=== PATIENT | female | born 1940 | race Caucasian/White ===

== ENCOUNTER 2020-04-20 10:25 | Outpatient (CLI) | payer MEDICARE, SELFPAY ==
--- NOTE | ~2020-04-20 | XR_ITS ---
XR chest 2V DATE: 04/20/2020 10:55 INDICATION: Shortness of breath. Epigastric pain. TECHNIQUE: PA and lateral views COMPARISON: 01/29/2019 PA chest and left RIBS FINDINGS: Bilateral hyperinflation, suggesting COPD. There is discoid atelectasis or more likely scar ring in the left lower lung in the retrocardiac area. No pulmonary infiltrate or consolidation, pleur al effusion or pulmonary vascular congestion or pneumothorax is detected. Heart size appears within normal limits. There is aortic calcification and mild unfolding. Diffuse osteopenia. Mild degenerative spurring of the thoracic spine. IMPRESSION: Bilateral hyperinflation, suggesting COPD Discoid scarring, left lower lobe Osteopenia Reviewed, dictated and finalized at location A.
== END 2020-04-20 10:26 | disposition home or self-care (01) ==
LOC: ANHIMG 10:34
PROVIDERS: PCP Family Medicine; Visit Provider Family Medicine
DX: R06.02 Shortness of breath (principal); R07.89 Other chest pain; G20 Parkinson's disease; R91.8 Other nonspecific abnormal finding of lung field; M85.88 Other specified disorders of bone density and structure, other site
CPT/HCPCS: 71046

== ENCOUNTER 2020-05-09 12:01 | Outpatient (CLI) | payer MEDICARE, SELFPAY ==
--- NOTE | ~2020-05-09 | MMUS_ITS ---
EXAMINATION: MM screen RT diag LT w amberly, US breast LT limited HISTORY: Mastodynia and lump, left breast TECHNIQUE: MLO and cc 3-D tomosynthesis images of both breasts and ML 3-D Tomosynthesis images of lef t breast were performed and synthetic 2-D images were generated. CAD analysis was submitted and inter preted. High resolution targeted left breast ultrasound was performed. COMPARISON: 11/28/2016 right screening/left diagnostic mammogram and limited left breast ultrasound BREAST PARENCHYMAL COMPOSITION: The breasts are heterogeneously dense, which may obscure small masses . FINDINGS: MAMMOGRAPHIC FINDINGS: Multiple bilateral benign calcifications. No suspicious mass or architectural distortion, malignant c alcification, skin thickening or retraction or significant new or developing density is detected. ULTRASOUND: There is no evidence of focal abnormal solid or cystic lesion in the area of complaint of breast pain at 12:00 3 cm above the nipple. IMPRESSION: 1. No mammographic evidence of malignancy 2. Routine mammographic screening is recommended. BI-RADS Category 2: Benign finding(s). Reviewed, dictated and finalized at location A. IMPRESSION: 1. No mammographic evidence of malignancy 2. Routine mammographic screening is recommended. BI-RADS Category 2: Benign finding(s).
== END 2020-05-09 12:02 | disposition home or self-care (01) ==
PROVIDERS: PCP Family Medicine; Visit Provider Family Medicine
DX: N63.20 Unspecified lump in the left breast, unspecified quadrant (principal); N64.4 Mastodynia; Z12.31 Encounter for screening mammogram for malignant neoplasm of breast
CPT/HCPCS: 76642; 77063; 77065; 77067

== ENCOUNTER 2020-05-25 09:08 | Outpatient (CLI) | payer MEDICARE, SELFPAY ==
--- NOTE | 2020-05-25 09:20 | ECHO_ITS ---
Patient Info Name: Rosalie Bettencourt Age: 79 years : 1940 Gender: Female Ht: 67 in Wt: 128 lbs BSA: 1.65 m2 HR: 66 bpm BP: 167 / 75 mmHg Technical Quality: Good Exam Date: 05/25/2020 9:25 AM Exam Location: [facility] Patient Status: Outpatient Admit Date: 05/25/2020 Staff Ordering Physician: Zamzam Myrick MD Interlocking Pavement Installer: Rosalie Alvarez RDCS Attending Provider: Zamzam Myrick MD Referring Physician: Ramez DUNN; Exam Type: CA echo doppler color flow Study Info Indications - sob Complete two-dimensional, color flow and Doppler transthoracic echocardiogram is performed. Summary 1. Left ventricular chamber dimension is normal. 2. Left ventricular systolic function is normal, estimated at 65-70%. 3. The left ventricular diastolic function is grade II diastolic dysfunction. 4. E/e' 12 is mildly elevated. 5. Left atrial chamber dimension is mildly enlarged. 6. There is mild aortic valve sclerosis. 7. There is mild mitral valve regurgitation. 8. There is trace tricuspid valve regurgitation. 9. No pulmonary hypertension, estimated pulmonary arterial systolic pressure is 27 mmHg. 10. There is trace pulmonic regurgitation. Left Ventricle E/e' 12 is mildly elevated. Left ventricular chamber dimension is normal. Left ventricular systolic function is normal, estimated at 65-70%. The left ventricular diastolic function is grade II diastolic dysfunction. Right Ventricle Right ventricular chamber dimension is normal. Right ventricular systolic function is normal. Left Atria Left atrial chamber dimension is mildly enlarged. Right Atria Right atrial chamber dimension is normal. Aortic Valve The aortic valve is trileaflet. There is mild aortic valve sclerosis. There is no aortic valve stenosis. There is no aortic valve regurgitation. Pulmonic Valve There is trace pulmonic regurgitation. Mitral Valve There is no mitral valve stenosis. There is mild mitral valve regurgitation. Tricuspid Valve There is trace tricuspid valve regurgitation. No pulmonary hypertension, estimated pulmonary arterial systolic pressure is 27 mmHg. Pericardium/Pleural There is no pericardial effusion. Inferior Vena Cava Normal inferior vena cava with >50% collapse upon inspiration consistent with normal right atrial pressure, 5 mmHg. Aorta The aortic root size at the sinus of Valsalva is normal. Left Ventricular Outflow Tract Name Value Normal LVOT 2D LVOT Diameter 2.0 cm LVOT Doppler LVOT Peak Gradient 4 mmHg LVOT Mean Gradient 2 mmHg LVOT VTI 23 cm LVOT VTI/AV VTI Ratio 0.7 LVOT Stroke Volume 69 ml LVOT CO 13.3 l/min LVOT CI 8.0 l/min/m2 Pulmonic Valve Name Value Normal
--- NOTE | 2020-05-31 13:52 | WPDPFTINT ---
PFT Interpretation PFT Interpretation: DOS: 05/25/2020 REQUESTING: Dr. Zamzam Myrick REASON FOR TESTING: Shortness of breath PULMONARY FUNCTION TESTS Results are reproducible and reliable. Spirometry: FEV1 is 57%, moderately decreased. FVC is 58%, moderately decreased. FEV1% is decreased. NFI01-53% is 31% predicted, severely decreased. There is no significant response to bronchodilator. Lung volumes: TLC 84%, normal. RV 123%, consistent with mild air trapping. Airways resistance is 293%, increased. Diffusion: DLCO 79%, normal. Flow volume loop: Mild scooping of the expiratory limb. IMPRESSION: Moderate obstructive ventilatory impairment with air trapping, increased airway resistance, and normal diffusion. Lack of response to bronchodilator should not preclude use if clinically indicated. Vanda Gordon MD
== END 2020-05-25 09:09 | disposition home or self-care (01) ==
LOC: ANHCARD 09:11
PROVIDERS: PCP Family Medicine; Visit Provider Family Medicine
DX: R06.02 Shortness of breath (principal); R94.2 Abnormal results of pulmonary function studies; I51.7 Cardiomegaly
CPT/HCPCS: 93306; 94060; 94726; 94729

== ENCOUNTER 2021-10-29 21:23 | Emergency (ER) | payer MEDICARE, SELFPAY ==
--- NOTE | ~2021-10-29 | CT_ITS ---
EXAMINATION: CT BRAIN W/O DATE: 10/29/2021 22:20 INDICATION: Numbness and tingling. TECHNIQUE: Computed tomography (CT) of the head was performed without intravenous contrast. The dose- length product was 605.33 mGy-cm. Automated exposure control and iterative reconstruction technique w ere employed. COMPARISON: No prior studies for comparison. FINDINGS: Normal brain parenchymal volume for age. Normal brody-white differentiation. No acute intrac ranial hemorrhage, infarction, mass or mass effect. No ventriculomegaly or midline shift. Midline sagittal images demonstrate a normal corpus callosum, c raniovertebral junction and sella turcica. Basilar cisterns are patent. Paranasal sinuses and mastoids are pneumatized. No depressed skull fractures. IMPRESSION: 1. No acute intracranial abnormality. Reviewed, dictated and finalized at location A. K GREASER
[2021-10-29 21:30] VITALS: BP 198/82; PULSE 70; RESP 16; TEMP 36.8; O2SAT 95
[2021-10-29 21:46] VITALS: PULSE 77; O2SAT 96
[2021-10-29 21:47] VITALS: BP 193/93; PULSE 74; PULSE 75; RESP 12; RESP 18; TEMP 36.6; O2SAT 100; O2SAT 96
--- NOTE | 2021-10-29 21:52 | ED.NEUROSD ---
HPI - Neuro Symptoms/Deficit General Chief Complaint: Suspected CVA Stated Complaint: right sided numbness, tingling 1 hour ago Time Seen by Provider: 10/29/21 21:42 Source: patient History of Present Illness HPI Narrative: Patient presents with paresthesias of the right hand and right lip. Patient reports she was resting at home developed sudden onset of tingling in her hands that slowly radiated up to her elbow then resolved after which she developed paresthesias on her right tongue and right lip symptoms have resolved as well. Symptoms lasted approximately 10 minutes and resolved without intervention. Prior to today she is felt well denies any recent fevers, cough, congestion, nausea, vomiting, change in appetite. She denies any associated headache or muscle weakness. She reports remote history of hand numbness undiagnosed. Related Data Home Medications Medication Instructions Recorded Confirmed carbidopa 25 mg-levodopa 100 mg 1.5 tablet PO TID tablet 11/02/20 10/02/21 tablet Allergies Allergy/AdvReac Type Severity Reaction Status Date / Time No Known Allergies Allergy Verified 10/29/21 21:35 Review of Systems Review of Systems: CONSTITUTIONAL: Denies fever, chills, or sweats. EYES: Denies visual changes, redness, or discharge. ENT: Denies rhinorrhea, congestion, sore throat, or otalgia. CARDIOVASCULAR: Denies chest pain, palpitations, or edema. RESPIRATORY: Denies cough or dyspnea. GASTROINTESTINAL: Denies abdominal pain, nausea, vomiting, or diarrhea. GENITOURINARY: Denies dysuria or hematuria. SKIN: Denies rash or itching. MUSCULOSKELETAL: Denies back pain, joint pain, or myalgia. NEUROLOGIC: Denies headache, dizziness, or weakness. PSYCHIATRIC: Denies anxiety or depression. All systems reviewed & are unremarkable except as noted in HPI and below PMFSH Past Medical History Medical History Supraventricular tachycardia Family History Family History Grandparent Diabetes mellitus Family history of cardiovascular disease Sibling Family history of malignant neoplasm Mother Family history of Parkinson's disease Father Family history of pancreatic cancer Other Cerebrovascular accident Family history of malignant neoplasm of breast Social History Social History Alcohol intake: current Exam Narrative: GENERAL: Well-appearing, well-nourished, and in no acute distress. HEAD: Normocephalic, atraumatic. EYES: PERRLA and EOMI. ENT: Nares clear, no rhinorrhea or epistaxis. Mucous membranes moist. NECK: Supple. No masses. No JVD CHEST: Clear to auscultation. No respiratory distress. No wheezes rales or rhonchi HEART: Regular rate and rhythm. No murmur heard. Normal peripheral pulses. ABDOMEN: Soft, nontender, nondistended, normal active bowel sounds. EXTREMITIES: Normal range of motion. No edema. Negative Phalen's and Tinel's SKIN: Warm, dry, no rash. NEURO: Cranial nerves II through XII are intact patient has 5 out of 5 strength in all extremities sensation intact to light touch in all extremities alert and oriented x3. PSYCH: Normal mood and affect. Course Reevaluation(s) Reevaluation #1: Patient continues to be asymptomatic. Results and plan reviewed with patient. Patient is comfortable with outpatient plan. Date: 10/29/21 Time: 22:37 Vital Signs Vital signs: Vital Signs Temperature 36.8 C 10/29/21 21:30 Pulse Rate 70 10/29/21 21:30 Respiratory Rate 16 10/29/21 21:30 Blood Pressure 198/82 H 10/29/21 21:30 Pulse Oximetry 95 10/29/21 21:30 Temperature 36.6 C 10/29/21 21:47 Pulse Rate 84 10/29/21 22:04 Respiratory Rate 12 10/29/21 21:47 Blood Pressure 193/93 H 10/29/21 21:47 Pulse Oximetry 96 10/29/21 21:47 MDM - Neuro Symptoms/Deficit MDM Narrative Medical
[2021-10-29 22:04] VITALS: PULSE 84
[2021-10-29 22:12] LABS: Basophils Percent Auto 0.7 % (0.2-1.2); Eosinophils Absolute Auto 0.1 K/mm3 (0-0.3); Eosinophils Percent Auto 1.6 % (0-4.4); Immature Granulocyte Absolute 0.01 K/mm3 (0.00-0.031); Immature Granulocyte Percent A 0.2 % (0-0.5); Lymphocytes Absolute Auto 2.54 K/mm3 (0.9-3.2); Lymphocytes Percent Auto 41.6 % (18.3-44.2); Mean Corpuscular HGB Conc 32.6 g/dl (32-36); Mean Corpuscular Hemoglobin 28.5 pg (26-34); Mean Corpuscular Volume 87.6 fl (80-100); Mean Platelet Volume 9.9 fl (7.4-10.4); Monocytes Absolute Auto 0.6 K/mm3 (0.1-0.6); Neutrophils Absolute Auto 2.8 K/mm3 (1.3-6.7); Neutrophils Percent Auto 45.9 % (45.5-73.1); Platelet Count Result 267 k/mm3 (150-375); Red Blood Count 4.91 M/mm3 (4.2-5.4); Red Cell Distribution Width 13.6 % (11.5-14.5); White Blood Count 6.1 K/mm3 (4.5-10.0)
[2021-10-29] MEDS: SODIUM CHLORIDE 0.9% IV 1,000 ML 999 ML IV CONT (22:12)
[2021-10-29 22:18] LABS: Add Urine Microscopic? YES; Appearance Urine Cloudy (Clear); Bacteria Urine Trace /hpf; Bilirubin Urine Negative (Negative); Blood Urine Negative (Negative); Color Urine Yellow (Yellow); Glucose Urine UA Negative (Negative); Ketones Urine Trace mg/dL (Negative); Leukocyte Esterase Ur 2+ LEU/UL (Negative); Mucus Urine Rare /lpf; Nitrate Urine Negative (Negative); Protein Urine Negative (Negative); Specific Grav Ur 1.013 (1.001-1.035); Squamous Epithelial Cell Urine Few /hpf (Few); Urobilinogen Urine Negative mg/dL (<2.0); WBC Urine 21-30 /hpf
[2021-10-29 22:24] LABS: Alanine Aminotransferase 7 U/L (4-35); Albumin Level 4.7 g/dL (3.5-5.1); Alkaline Phosphatase 77 U/L (38-126); Anion Gap 8 mmol/L (8-16); Aspartate Amino Transferase 31 U/L (14-36); Bilirubin,Total 0.7 mg/dL (0.2-1.3); Blood Urea Nitrogen 14 mg/dL (7-17); Calcium 9.6 mg/dL (8.4-10.2); Carbon Dioxide 27 mmol/L (22-30); Chloride 99 mmol/L (98-107); Estimated CRCL calculation 53 ml/min; Estimated Glomerular Filt Rate > 60; Glucose 106 mg/dL (65-110); Magnesium 1.8 mg/dL (1.6-2.3); Phosphorus 3.9 mg/dL (2.5-4.5); Potassium 3.7 mmol/L (3.4-5.0); Sodium 134 mmol/L (137-145)
== END 2021-10-29 23:12 | disposition home or self-care (01) ==
PROVIDERS: Emergency Provider Emergency Medicine; PCP Family Medicine
DX: N39.0 Urinary tract infection, site not specified (principal); R20.2 Paresthesia of skin
CPT/HCPCS: 36415; 70450; 80053; 81001; 83735; 84100; 85025; 87077; 87086; 87186; 96360; 99284; J7030

== ENCOUNTER 2021-10-31 10:24 | Outpatient (CLI) | payer MEDICARE, SELFPAY ==
--- NOTE | ~2021-10-31 | MM_ITS ---
EXAMINATION: MM screening melina BI w amberly HISTORY: Screening mammogram TECHNIQUE: Craniocaudal and mediolateral oblique 3-D tomosynthesis images were obtained and synthetic 2-D images were generated. CAD analysis was submitted and interpreted. COMPARISON: No prior mammogram is available for comparison at this institution. BREAST PARENCHYMAL COMPOSITION: The breasts are heterogeneously dense, which may obscure small masses . FINDINGS: Numerous bilateral benign calcifications are noted There is no evidence of suspicious mass , calcification, or architectural distortion to suggest malignancy in either breast. There has been n o suspicious interval change. IMPRESSION: 1. No mammographic evidence of malignancy. 2. Recommend routine screening mammography in one year. BI-RADS Category 2: Benign finding(s). Reviewed, dictated and finalized at location A. AGE SUPERVISOR
== END 2021-10-31 10:25 | disposition home or self-care (01) ==
LOC: ANHIMG 10:25
PROVIDERS: PCP Family Medicine; Visit Provider Family Medicine
DX: Z12.31 Encounter for screening mammogram for malignant neoplasm of breast (principal)
CPT/HCPCS: 77063; 77067

== ENCOUNTER 2022-02-05 18:57 | Inpatient (IN) | payer MEDICARE, SELFPAY ==
--- NOTE | ~2022-02-05 | US_ITS ---
EXAMINATION:US venous doppler LE BI INDICATION:Positive d-dimer TECHNIQUE: Multiple grayscale, color flow and Doppler images of the right and left lower extremity de ep venous systems were obtained and reviewed. COMPARISON:No prior studies for comparison. FINDINGS: The common femoral, superficial femoral and popliteal veins demonstrate normal respiratory variation, augmentation and compressibility. Color flow is also seen within the posterior tibial, pe roneal, greater saphenous and profunda veins. IMPRESSION: 1: No lower extremity deep venous thrombosis. Reviewed, dictated and finalized at location A.
--- NOTE | ~2022-02-05 | MR_ITS ---
EXAMINATION: MR brain/brain stem wo con DATE: 02/06/2022 11:11 CDT INDICATION: Dizziness TECHNIQUE: Magnetic resonance imaging (MRI) of the brain and brainstem was performed without intraven ous contrast. Sequences included sagittal and axial T1-weighted SE, axial diffusion-weighted FS SE, a xial T2*-weighted GRE, axial T2-weighted FLAIR Propeller, and axial T2-weighted Propeller. Apparent d iffusion coefficient (ADC) maps were created. COMPARISON: CT dated 02/05/2022 FINDINGS: The brain volume and ventricular system are within normal limits. The brain parenchymal si gnal intensity pattern and brody/white matter is normal and there is no evidence of hemorrhage, space occupying masses or infarctions. There are scattered mild periventricular and subcortical white matte r changes, most likely related to small vessel ischemic disease (microangiopathy). Orbits are symmetr ic without disconjugate gaze. The flow signal voids of the major arterial structures about the [place] of [place] and within the silva r dural venous sinuses appear grossly unremarkable and patent. The seventh and eighth cranial nerve complexes are normal. The mid sagittal image demonstrates a normal craniovertebral junction and khang us callosum. The paranasal sinuses are grossly unremarkable. IMPRESSION: 1: No acute intracranial abnormality. 2: Age-related findings. Reviewed, dictated and finalized at location A.
--- NOTE | ~2022-02-05 | CT_ITS ---
EXAMINATION: CT brain wo con, CT cervical spine wo con EXAM DATE: 02/05/2022 19:29 INDICATION: Fall. Head injury. Left ear bleeding. TECHNIQUE: Spiral CT of the head was performed without contrast. Axial, coronal and sagittal images were reviewed. Spiral CT of the cervical spine was performed without contrast. Axial images were rev iewed. Coronal and sagittal reformatted images were also reviewed. The dose-length product (DLP) fo r this examination was 605.33 (accession [id number]), 82.25 (accession [id number]) mGy-cm. T he exposure was tailored according to patient size, and iterative reconstruction (ASIR) was used as a dditional dose reduction technique. Comparison is made to prior examination from 10/29/2021. FINDINGS: HEAD CT: There is no acute intraparenchymal hemorrhage. No evidence of intraparenchymal brain mass l esion. No evidence of acute infarction. There is mild periventricular and subcortical hypodensity, n onspecific but probably related to small vessel ischemic disease. There is mild prominence of the s ulci and ventricles related to cerebral atrophy. There is no mass effect or midline shift. There i s no obstructive hydrocephalus suspected. There are no extra-axial collections. There are no acute calvarial fractures. Patient has had bilateral ocular lens surgery. Soft tissue is unremarkable. T he visualized sinuses and mastoid air cells are well aerated. CERVICAL CT: There is no evidence of acute cervical fracture. The odontoid process is intact. Pre-d ens space is normal. Prevertebral soft tissue is normal. There are no soft tissue abnormalities isabella ntified. There is no disc space widening or traumatic vertebral body subluxation suspected. Moderat e cervical spondylosis. A detailed level by level evaluation of spondylosis can be added as addendum if requested. IMPRESSION: 1. No acute intracranial findings or cervical fracture. 2. Age-related intracranial findings. 3. Cervical spondylosis. Reviewed, dictated and finalized at location G. IMPRESSION: 1. No acute intracranial findings or cervical fracture. 2. Age-related intracranial findings. 3. Cervical spondylosis.
--- NOTE | ~2022-02-05 | US_ITS ---
EXAMINATION: US carotid duplex BI DATE: 02/06/2022 11:40 INDICATION: Syncope TECHNIQUE: Grayscale, color Doppler, and pulsed Doppler images of the cervical carotid arteries were obtained. The degree of vessel stenosis is placed in one of the following categories: normal, <50%, 5 0-69%, >=70% but less than near-occlusion, near-occlusion, or total occlusion. Note that percent sten osis relative to normal distal artery lumen diameter is indirectly measured from velocity measurement s as described by Sven, et al. Radiology 2003; 229:340-346. Notes: Normal: Peak systolic velocity <125 centimeters/sec and no plaque <50%. Peak systolic velocity <125 ( EDV <40; ICA/CCA PSV ratio <2.0; used these factors only a tandem lesions or low cardiac output or co ntralateral disease) 50-69 %: PSV 125-230 (EDV 40-100; ratio 2-4) >= 70% but less than near occlusion: PSV greater than 230 (EDV > 100; ratio> 4.0) Near Occlusion: PSV that is variable; markedly narrowed lumen Occlusion: Absent flow on color/spectral Doppler and no lumen on brody scale. COMPARISON: None. FINDINGS: RIGHT: The right common carotid artery (CCA) peak systolic velocity (PSV) is 98 cm/s. The right internal car otid artery (ICA) PSV is 84 cm/s. The right ICA end-diastolic velocity (EDV) is 14 cm/s. The right IC A/CCA PSV ratio is 0.9. The external carotid artery (ECA) PSV is 122 cm/s. There is antegrade flow in the right vertebral artery. LEFT: The left CCA PSV is 106 cm/s. The left ICA PSV is 93 cm/s. The left ICA EDV is 24 cm/s. The left ICA/ CCA PSV ratio is 0.9. The ECA PSV is 111 cm/s. There is antegrade flow in the left vertebral artery. IMPRESSION: 1. Less than 50% stenosis in the right internal carotid artery by sonographic criteria. 2. Less than 50% stenosis in the left internal carotid artery by sonographic criteria. Reviewed, dictated and finalized at location A. IMPRESSION: 1. Less than 50% stenosis in the right internal carotid artery by sonographic brian díaz. 2. Less than 50% stenosis in the left internal carotid artery by sonographic juan carlos ellis.
[2022-02-05 19:00] VITALS: BP 161/71; PULSE 61; RESP 18; TEMP 36.6; O2SAT 98
--- NOTE | 2022-02-05 19:05 | ECG_ITS ---
Measurements Intervals [place] Rate: 60 P: 81 CA: 200 QRS: -14 QRSD: 105 T: 44 QT: 421 QTc: 423 Interpretive Statements SINUS RHYTHM POSSIBLE RIGHT VENTRICULAR CONDUCTION DELAY [RSR (QR) IN V1/V2] MINIMAL VOLTAGE CRITERIA FOR LVH, CONSIDER NORMAL VARIANT [MEETS CRITERIA IN ONE OF: R(aVL), S(V1), R(V5), R(V5/V6)+S(V1)] INFERIOR MYOCARDIAL INFARCTION , PROBABLY OLD [40+ ms Q WAVE AND/OR ST/T ABNORMALITY IN II/aVF] ABNORMAL ECG NO PREVIOUS ECG AVAILABLE FOR COMPARISON Electronically Signed On 02-06-2022 13:52:34 CDT by Micha Franz M.D.
--- NOTE | 2022-02-05 19:33 | ED.DIZZY ---
HPI - Dizziness General Chief Complaint: Syncope Stated Complaint: syncopal with glf hit left side of head Time Seen by Provider: 02/05/22 19:10 Source: patient Mode of arrival: ambulatory Limitations: no limitations History of Present Illness HPI Narrative: Patient is an 82-year-old female brought in by EMS after a syncopal episode while sitting at her desk at work prior to arrival. Patient states that she felt lightheaded prior to the event. Patient denies any headache, dizziness, speech or visual disturbance, focal weakness or numbness, chest pain, shortness of breath, abdominal pain, nausea, vomiting, diarrhea, urinary symptoms, fever or chills. Related Data Home Medications Medication Instructions Recorded Confirmed carbidopa 25 mg-levodopa 100 mg 1.5 tablet PO TID tablet 11/02/20 01/16/22 tablet Allergies Allergy/AdvReac Type Severity Reaction Status Date / Time No Known Allergies Allergy Verified 01/16/22 14:51 Review of Systems Review of Systems: All systems reviewed & are unremarkable except as noted in HPI and below Constitutional: Constitutional: Denies body ache(s), Denies chills, Denies excessive sweating, Denies fatigue, Denies fever(s), Denies headache(s), Denies lethargy, Denies malaise, Denies weakness and Denies weight loss Eyes: Eyes: Denies blurry vision, Denies change in vision and Denies loss of vision ENT: Denies dizziness, Denies ear discharge, Denies headache(s), Denies lip swelling, Denies epistaxis, Denies nasal congestion, Denies neck pain, Denies throat swelling and Denies tongue swelling Cardiovascular: Cardiovascular: Denies chest pain, Denies chest pain at rest, Denies chest pain with activity, Denies diaphoresis, Denies rapid heart rate, Denies edema, Denies irregular heart rhythm, Denies lightheadedness, Denies palpitations, Denies dyspnea and Denies dyspnea on exertion Respiratory: Respiratory: Denies chest congestion, Denies cough, Denies hemoptysis, Denies dyspnea and Denies dyspnea on exertion Gastrointestinal: Gastrointestinal: Denies abdominal pain, Denies melena, Denies hematochezia, Denies diarrhea, Denies nausea, Denies vomiting and Denies hematemesis Musculoskeletal: Musculoskeletal: Denies abnormal gait, Denies deformity, Denies joint swelling, Denies limited range of motion, Denies neck pain and Denies numbness Neurologic: Denies Abnormal speech present, Denies abnormal gait, Denies confusion, Denies dizziness, Denies headache(s), Denies focal weakness, Denies loss of vision, Denies numbness, Denies Other visual disturbances, Denies Sensory deficit (Neuro) and Denies weakness Psychiatric: Psychiatric: Denies confusion, Denies depression, Denies auditory hallucinations, Denies homicidal ideation and Denies suicidal ideation Endocrine: Endocrine: Denies cold intolerance, Denies excessive sweating, Denies fatigue, Denies heat intolerance and Denies palpitations Hematologic/Lymphatic: Hematologic/Lymphatic: Denies easy bleeding and Denies easy bruising Allergic/Immunologic: Allergic/Immunologic: Denies lip swelling, Denies throat swelling and Denies tongue swelling PMFSH Past Medical History Medical History Supraventricular tachycardia Family History Family History Grandparent Diabetes mellitus Family history of cardiovascular disease Sibling Family history of malignant neoplasm Mother Family history of Parkinson's disease Father Family history of pancreatic cancer Other Cerebrovascular accident Family history of malignant neoplasm of breast Social History Social History Alcohol intake: current Exam Const: General: cooperative, healthy appearing, comfortable, no acute distress, well developed, alert and awake; No confusion Orientation/consciousness: oriented to per
[2022-02-05] MEDS: LACTATED RINGERS 1,000 ML 999 ML IV CONT (19:47)
[2022-02-05] MEDS: ONDANSETRON INJ 4 MG/2 ML VIAL IV PUSH (19:47)
[2022-02-05 19:48] LABS: Basophils Percent Auto 0.4 % (0.2-1.2); Eosinophils Absolute Auto 0.1 K/mm3 (0-0.3); Eosinophils Percent Auto 0.5 % (0-4.4); Hematocrit 42.6 % (37.0-47.0); Hemoglobin 13.4 g/dL (12.0-15.0); Immature Granulocyte Absolute 0.05 K/mm3 (0.00-0.031); Immature Granulocyte Percent A 0.5 % (0-0.5); Lymphocytes Absolute Auto 1.84 K/mm3 (0.9-3.2); Lymphocytes Percent Auto 19.4 % (18.3-44.2); Mean Corpuscular HGB Conc 31.5 g/dl (32-36); Mean Corpuscular Volume 89.1 fl (80-100); Mean Platelet Volume 9.8 fl (7.4-10.4); Monocytes Absolute Auto 0.6 K/mm3 (0.1-0.6); Monocytes Percent Auto 6.2 % (2.6-8.5); Neutrophils Absolute Auto 6.9 K/mm3 (1.3-6.7); Platelet Count Result 218 k/mm3 (150-375); Red Blood Count 4.78 M/mm3 (4.2-5.4); Red Cell Distribution Width 13.6 % (11.5-14.5); White Blood Count 9.5 K/mm3 (4.5-10.0)
[2022-02-05 20:02] LABS: Anion Gap 4 mmol/L (8-16); Blood Urea Nitrogen 19 mg/dL (7-17); Carbon Dioxide 31 mmol/L (22-30); Chloride 102 mmol/L (98-107); Estimated CRCL calculation 62 ml/min; Estimated Glomerular Filt Rate > 60; Glucose 149 mg/dL (65-110); Potassium 3.5 mmol/L (3.4-5.0); Sodium 137 mmol/L (137-145)
[2022-02-05 20:13] LABS: Troponin I < 0.012 ng/mL (0.000-0.034)
[2022-02-05 20:14] LABS: INR 1.1; Prothrombin Time 13.4 Seconds (11.1-14.7)
[2022-02-05 20:15] LABS: Partial Thromboplastin Time 33.2 SECONDS (22.3-36.8)
[2022-02-05 22:02] LABS: SARS-CoV-2 RNA PCR Negative
[2022-02-05] MEDS: LACTATED RINGERS 1,000 ML 90 ML IV CONT (22:11)
[2022-02-05 23:01] VITALS: BP 148/71; PULSE 61; RESP 19; O2SAT 100
[2022-02-05 23:31] VITALS: BP 149/90; PULSE 68; RESP 20; O2SAT 100
[2022-02-06] VITALS (19 sets, daily range): BP systolic 120–171; BP diastolic 60–77; PULSE 55–85; RESP 14–19; TEMP 36.2–36.8; O2SAT 95–100; BMI 19.4
--- NOTE | 2022-02-06 | ECHO_ITS ---
Patient Info Name: Rosalie Bettencourt Age: 81 years : 1940 Gender: Female Ht: 67 in Wt: 124 lbs BSA: 1.62 m2 HR: 62 bpm BP: 155 / 73 mmHg Heart Rhythm: Sinus Rhythm Technical Quality: Fair Exam Date: 02/06/2022 8:52 AM Exam Location: [facility] Patient Status: Outpatient Admit Date: 02/05/2022 Staff Ordering Physician: Romero Lassiter MD Relief Worker: Kaycee Umaña RDCS Attending Provider: Monserrat Beaver PA-C Exam Type: CA echo dop color flow w con Study Info Indications - Syncope Complete two-dimensional, color flow and Doppler transthoracic echocardiogram is performed with contrast to opacify the left ventricle and to improve the deliniation of the left ventricle endocardial borders. Contrast/Agitated Saline Contrast/Ag. Saline: Definity Amount: 2.00 ml Administered By: Kaycee Umaña RDCS Existing IV Access: Yes IV Access Condition: patent with no signs of infiltration Summary 1. Left ventricular chamber dimension is normal. 2. Left ventricular systolic function is normal, estimated at 65-70%. 3. The left ventricular diastolic function is abnormal. 4. E/e' 14 is mildly elevated. 5. There is mild aortic valve sclerosis. 6. There is mild mitral valve regurgitation. 7. There is trace tricuspid valve regurgitation. 8. No pulmonary hypertension, estimated pulmonary arterial systolic pressure is 32 mmHg. 9. There is trace pulmonic regurgitation. Left Ventricle E/e' 14 is mildly elevated. Left ventricular chamber dimension is normal. Left ventricular systolic function is normal, estimated at 65-70%. The left ventricular diastolic function is abnormal. Right Ventricle Right ventricular chamber dimension is normal. Right ventricular systolic function is normal and with normal TAPSE 1.8 cm. Left Atria Left atrial chamber dimension is normal. Right Atria Right atrial chamber dimension is normal. Aortic Valve The aortic valve is trileaflet. There is mild aortic valve sclerosis. There is no aortic valve stenosis. There is no aortic valve regurgitation. Pulmonic Valve There is trace pulmonic regurgitation. Mitral Valve There is no mitral valve stenosis. There is mild mitral valve regurgitation. Tricuspid Valve There is trace tricuspid valve regurgitation. No pulmonary hypertension, estimated pulmonary arterial systolic pressure is 32 mmHg. Pericardium/Pleural There is no pericardial effusion. Inferior Vena Cava Normal inferior vena cava with >50% collapse upon inspiration consistent with normal right atrial pressure, 5 mmHg. Aorta The aortic root size at the sinus of Valsalva is normal. Left Ventricular Outflow Tract Name Value Normal LVOT 2D LVOT Diameter 1.99 cm LVOT Doppler LVOT Peak Gradient 9 mmHg LVOT Mean Gradient 5 mmHg LVOT VTI 32.68 cm LVOT VTI/AV VTI Ratio 0.82 LVOT Stroke Volume 101.31 ml LVOT CO 6.
--- NOTE | 2022-02-06 00:36 | PM.IMHP ---
H&P: HPI History of Present Illness Date/Time: 02/06/22 00:36 Chief Complaint: Syncope Narrative: This is an 82-year-old female who is brought in after a syncopal episode in the evening yesterday. She states that in the evening she was working at her desk when she felt somewhat lightheaded for few seconds which resolved on its own. Next thing she knew was she was on the floor next to her chair and likely hit her book shelf with some of the books fell on the floor. She immediately realized she was on the floor and called out for help to her . She had some abrasions in her year in her hand because of that fall. She denies any headache speech or visual disturbances or any focal E weakness or numbness. She denies any palpitations or shortness of breath or abdominal pain. She states she fell nauseous at home and threw up there. EMS was called and was brought to the hospital. She noticed that she was nauseous throughout the time of the ride in the ambulance. She threw up again in the ER while she was getting transported to get her CT scans done. She was given some Zofran and Compazine which is now she has felt much better. She has underlying history of Parkinson's disease and takes carbidopa levodopa on regular basis. She denies any recent illness with no urinary symptoms or diarrhea. She denies any fever chills. She had a head CT scan done which was unremarkable for any acute findings. Cervical spine CT was also negative. Laboratory evaluation was unremarkable with normal CBC. Troponin was negative. COVID test was done which is negative. UA is negative. She is admitted for further evaluation and management under observation status. Review of Systems Review of Systems: - CONSTITUTIONAL: Denies weight loss, fever and chills. - HEENT: Denies changes in vision and hearing - RESPIRATORY: Denies SOB and cough. - CV: Denies palpitations and CP. - GI: Denies abdominal pain, reports nausea, vomiting and denies diarrhea. - : Denies dysuria and urinary frequency. - MSK: Denies myalgia and joint pain. - SKIN: Denies rash and pruritus. - NEUROLOGICAL: Denies headache and reports syncope. - PSYCHIATRIC: Denies recent changes in mood. Denies anxiety and depression. All systems reviewed & are unremarkable except as noted in HPI and below Constitutional: Constitutional: Reports fatigue and Reports weakness Neurologic: Reports weakness Endocrine: Endocrine: Reports fatigue PMFSH Past Medical History Medical History Supraventricular tachycardia Family History Family History Grandparent Diabetes mellitus Family history of cardiovascular disease Sibling Family history of malignant neoplasm Mother Family history of Parkinson's disease Father Family history of pancreatic cancer Other Cerebrovascular accident Family history of malignant neoplasm of breast Social History Social History Smoking status: Never smoker Alcohol intake: current Drinks per week: 1 Substance use: never Substance use type: does not use Spiritual care concerns: No Meds Home Medications and Allergies Home Medications Medication Instructions Recorded Confirmed Type carbidopa 25 mg-levodopa 100 mg 1.5 tablet PO TID tablet 11/02/20 02/06/22 History tablet Allergies Allergy/AdvReac Type Severity Reaction Status Date / Time No Known Allergies Allergy Verified 01/16/22 14:51 Vital Signs Vital Signs - 24 hr 02/05/22 19:00 02/05/22 23:01 02/05/22 23:31 Temperature 97.8 F Pulse Rate 61 61 68 Respiratory Rate 18 19 20 Blood Pressure 161/71 H 148/71 H 149/90 H Pulse Oximetry 98 100 100 Exam Narrative: GENERAL: The patient is well developed, not in acute distress HEENT: Nonicteric sclerae, PERRLA, EOMI. Maren
--- NOTE | 2022-02-06 01:42 | ADMGEN ---
This patient, Rosalie Bettencourt, was admitted to Medical Room 261-01. Patient/family oriented to hospital policies and general routines including ID bracelet, bed and alarms, visiting hours, pain management, procedures, bathroom and other care routines, personal items, smoking policy, room service/diet, and visiting hours. Information on how to activate the Rapid Response Team has been discussed. Patient/Family are encouraged to report perceived risks to care and to ask questions if they do not understand what they are told or what they should do.
[2022-02-06 06:13] LABS: D Dimer 0.56 ug/mL (<0.48)
[2022-02-06] MEDS: CARBIDOPA/LEVODOPA 12.5/50 MG TABLET 1 TABLET PO ×3 (09:00→16:35)
[2022-02-06] MEDS: CARBIDOPA/LEVODOPA 25/100 MG TABLET 1 TABLET PO ×3 (09:00→16:34)
[2022-02-06] MEDS: ENOXAPARIN 40 MG/0.4 ML SYRINGE SUB-Q (09:00)
[2022-02-06] MEDS: LACTATED RINGERS 1,000 ML 90 ML IV CONT ×2 (09:20→20:35)
[2022-02-06] MEDS: PERFLUTREN LIPID MICROSPHERES 1.5 ML VIAL DILUTED TO 10 ML TOTAL VOLUME IV PUSH (10:34)
--- NOTE | 2022-02-06 10:34 | IVDEFINITY ---
Prior to administration of IV Definity the patient was educated on the risks and benefits of the imaging enhancing agent including potential adverse side effects. The patient verbalized understanding. Allergies were verified. No exclusion criteria were identified and at least one of the following inclusion criteria were met: 1) physician request, 2) patient technically difficult to image (per the [place] [employer] of Echocardiography guidelines of two or more segments not discernable within the apical view), or 3) questionable left ventricular function. ?
--- NOTE | 2022-02-06 13:25 | PM.IMPN ---
Progress Note: A&P Assessment and Plan (1) Syncope: Qualifiers: Syncope type: unspecified Qualified Code(s): R55 - Syncope and collapse Code(s): R55 - Syncope and collapse Status: Acute Assessment and Plan: -unclear etiology -does not sound orthostatic as patient was sitting at the time of the event, was not attempting to get up, and denies dizziness -ordered orthostatics today but patient has been on IVF overnight -no dysrhythmias noted on telemetry, does have a few PACs -EKG possible old ischemic changes, trop negative, no cp -started nortriptyline a few weeks ago but stopped in 4-5 days ago, she does not remember why she stopped taking it -carotid dopplers negative -MRI brain negative -echocardiogram reviewed, no wall motion abnormalities -neuro consulted (2) Peripheral neuropathy: Qualifiers: Peripheral neuropathy type: polyneuropathy associated with underlying disease Qualified Code(s): G63 - Polyneuropathy in diseases classified elsewhere Code(s): G62.9 - Polyneuropathy, unspecified Status: Acute Assessment and Plan: -chronic -nortriptyline discontinued prior to admission (3) Parkinsons disease: Code(s): G20 - Parkinson's disease Status: Acute Assessment and Plan: -continue home meds (4) Grade II diastolic dysfunction: Code(s): I51.9 - Heart disease, unspecified Status: Acute Assessment and Plan: -echo reviewed (5) Hypertension: Code(s): I10 - Essential (primary) hypertension Status: Acute Assessment and Plan: -no prior diagnosis -will monitor closely, consider starting anti hypertensives Subjective Date/time seen: 02/06/22 13:25 Interval history: 81 yo female w/ hx of Parkinsons admitted for syncopal episode. Pt tells me she has never had any dizziness or light headedness. Prior to the syncopal episode yesterday she had a 15 second episode of discomfort in her head but she cannot elaborate further other than clarifying she was never dizzy. She reiterates she just didn't feel good. She admits she maybe had some sob at the time but denies chest pain. After those 15 seconds she woke up on the ground. She does not know how long she was unconscious for. She states she was not attempting to stand up when this happened, that she was sitting in her chair prior to ending up on the ground. She denies vision changes, auras, tinnitus, abnormal smells, or anything else out of the ordinary prior to the syncopal episode. After she woke up she was nauseated. Today she feels okay, just tired. No further syncopal episodes. Nausea has resolved. No cp/sob. Review of Systems Review of Systems: All systems reviewed & are unremarkable except as noted in HPI and below Exam Narrative: GENERAL: The patient is well developed, not in acute distress HEENT: Nonicteric sclerae, PERRLA, EOMI. Oropharynx clear. Moist mucous membranes. Conjunctivae appear well perfused. CHEST: Chest wall is nontender. HEART: At times irregularly irregular, sinus rhythm on telemetry mild systolic murmur noted, no rubs, or gallops LUNGS: Clear to auscultation bilaterally. no respiratory distress ABDOMEN: Soft, positive bowel sounds, non-tender, no organomegaly. SKIN: No rash, no excessive bruising, petechiae, or purpura. NEUROLOGIC: Cranial nerves II-XII intact, alert and oriented x 3, no gross motor deficits fine tremor related to her underlying Parkinson's disease EXTREMITIES: no edema, cyanosis or clubbing Objective Data Vital Signs Vital Signs: Vital Signs - 24 hr 02/05/22 19:00 02/05/22 23:01 02/05/22 23:31 Temperature 97.8 F Pulse Rate 61 61 68 Respiratory Rate 18 19 20 Blood Pressure 161/71 H 148/71 H 149/90 H Pulse Oximetry 98 100 100 02/06/22 00:01 02/06/22 00:31 02/06/22 01:31 Temperature Pulse Rate 63 63 60 Respiratory Rate 19 18 18 Blood Pressure 139
--- NOTE | 2022-02-06 14:01 | WPDNEURCNPN ---
Consult date: 02/06/22 HPI: Rosalie Bettencourt is a 81 year old female admitted to the hospital through the emergency room where she was brought in by EMS after syncopal episode while sitting her desk at work prior to arrival she felt lightheaded, complained of no headache or dizziness or any speech or visual difficulties or any focal weakness or numbness or any associated chest pain or difficulties in breathing, she has been taking carbidopa levodopa 1.5 tablets 3 times a day in addition she is not allergic to any medication, in the past she has had supra ventricular tachycardia and she does drink alcohol, initial vital signs were stable except blood pressure of 161/71, carotid Doppler study which revealed less than 50% stenosis bilaterally, MRI of the brain negative, and negative venous Doppler study of the lower extremiti, in addition to WBC 9.5 hemoglobin 13.4 normal chemistry but glucose 149 and UA ernie serology for COVID negativel [facility] Past Medical History Medical History Supraventricular tachycardia Family History Family History Grandparent Diabetes mellitus Family history of cardiovascular disease Sibling Family history of malignant neoplasm Mother Family history of Parkinson's disease Father Family history of pancreatic cancer Other Cerebrovascular accident Family history of malignant neoplasm of breast Social History Social History Smoking status: Never smoker Alcohol intake: current Drinks per week: 1 Substance use: never Substance use type: does not use Spiritual care concerns: No Meds Home Medications and Allergies Home Medications Medication Instructions Recorded Confirmed Type carbidopa 25 mg-levodopa 100 mg 1.5 tablet PO TID tablet 11/02/20 02/06/22 History tablet Allergies Allergy/AdvReac Type Severity Reaction Status Date / Time No Known Allergies Allergy Verified 01/16/22 14:51 Vital Signs Vital Signs - 24 hr 02/05/22 19:00 02/05/22 23:01 02/05/22 23:31 Temperature 36.6 C Pulse Rate 61 61 68 Respiratory Rate 18 19 20 Blood Pressure 161/71 H 148/71 H 149/90 H Pulse Oximetry 98 100 100 02/06/22 00:01 02/06/22 00:31 02/06/22 01:31 Temperature Pulse Rate 63 63 60 Respiratory Rate 19 18 18 Blood Pressure 139/76 145/77 H 155/64 H Pulse Oximetry 100 99 100 02/06/22 01:54 02/06/22 02:16 02/06/22 04:00 Temperature 36.5 C Pulse Rate 85 78 59 L Respiratory Rate 18 Blood Pressure 171/74 H Pulse Oximetry 95 02/06/22 04:22 02/06/22 08:00 02/06/22 12:00 Temperature 36.8 C Pulse Rate 62 71 76 Respiratory Rate 18 Blood Pressure 155/73 H Pulse Oximetry 98 Results Labs CBC & Chem 7: 02/05/22 19:43 02/05/22 19:43 Labs: Short CBC 02/05/22 Range/Units 19:43 WBC 9.5 (4.5-10.0) K/mm3 Hgb 13.4 (12.0-15.0) g/dL Hct 42.6 (37.0-47.0) % Plt Count 218 (150-375) k/mm3 BMP 02/05/22 19:43 Sodium 137 Potassium 3.5 Chloride 102 Carbon Dioxide 31 H BUN 19 H Creatinine 0.50 L Glucose 149 H Calcium 9.0 Cardiac Enzymes 02/05/22 Range/Units 19:43 Troponin I < 0.012 (0.000-0.034) ng/mL Quality VTE Prophylaxis VTE prophylaxis: pharmacologic ordered
[2022-02-07] VITALS: PULSE 48
[2022-02-07 04:00] VITALS: PULSE 46
[2022-02-07 04:19] VITALS: BP 160/59; PULSE 56; RESP 18; TEMP 36; O2SAT 94
[2022-02-07 06:33] LABS: Basophils Percent Auto 0.5 % (0.2-1.2); Eosinophils Absolute Auto 0.1 K/mm3 (0-0.3); Eosinophils Percent Auto 1.4 % (0-4.4); Hematocrit 37.9 % (37.0-47.0); Immature Granulocyte Absolute 0.01 K/mm3 (0.00-0.031); Immature Granulocyte Percent A 0.2 % (0-0.5); Lymphocytes Absolute Auto 1.64 K/mm3 (0.9-3.2); Lymphocytes Percent Auto 38.1 % (18.3-44.2); Mean Corpuscular HGB Conc 31.7 g/dl (32-36); Mean Corpuscular Volume 88.6 fl (80-100); Mean Platelet Volume 10.1 fl (7.4-10.4); Monocytes Absolute Auto 0.5 K/mm3 (0.1-0.6); Monocytes Percent Auto 11.1 % (2.6-8.5); Neutrophils Absolute Auto 2.1 K/mm3 (1.3-6.7); Neutrophils Percent Auto 48.7 % (45.5-73.1); Platelet Count Result 201 k/mm3 (150-375); Red Blood Count 4.28 M/mm3 (4.2-5.4); Red Cell Distribution Width 13.7 % (11.5-14.5); White Blood Count 4.3 K/mm3 (4.5-10.0)
[2022-02-07 06:46] LABS: Anion Gap 3 mmol/L (8-16); Blood Urea Nitrogen 7 mg/dL (7-17); Calcium 8.4 mg/dL (8.4-10.2); Carbon Dioxide 31 mmol/L (22-30); Chloride 105 mmol/L (98-107); Estimated CRCL calculation 64 ml/min; Estimated Glomerular Filt Rate > 60; Glucose 92 mg/dL (65-110); Potassium 3.7 mmol/L (3.4-5.0); Sodium 139 mmol/L (137-145)
[2022-02-07] MEDS: CARBIDOPA/LEVODOPA 25/100 MG TABLET 1 TABLET PO ×2 (07:47→12:14)
[2022-02-07] MEDS: ENOXAPARIN 40 MG/0.4 ML SYRINGE SUB-Q (07:47)
[2022-02-07] MEDS: CARBIDOPA/LEVODOPA 12.5/50 MG TABLET 1 TABLET PO ×2 (07:47→12:14)
[2022-02-07 08:00] VITALS: PULSE 59
--- NOTE | 2022-02-07 11:17 | PM.DS ---
DS: Admitting Diagnosis Discharge Date 02/07/22 Admitting Diagnosis syncope DS: Discharge Diagnosis Discharge Diagnosis (1) Syncope: Qualifiers: Syncope type: unspecified Qualified Code(s): R55 - Syncope and collapse Code(s): R55 - Syncope and collapse Status: Acute Assessment and Plan: -unclear etiology -does not sound orthostatic as patient was sitting at the time of the event, was not attempting to get up, and denies dizziness -ordered orthostatics but patient had already been on IVF -no dysrhythmias noted on telemetry, does have a few PACs, she is noted to be bradycardic which she states is her baseline -EKG possible old ischemic changes, trop negative, no cp -started nortriptyline a few weeks ago but stopped in 4-5 days ago, she does not remember why she stopped taking it, will keep her off of this -carotid dopplers negative -MRI brain negative -echocardiogram reviewed, no wall motion abnormalities -neuro consulted, no additional recommendations. -she has not had any further episodes since admission -at this point etiology remains unclear. She has not had any recurrent episodes and work up here has been benign. We have set her up for a Holter monitor and will follow up with cardiology. (2) Peripheral neuropathy: Qualifiers: Peripheral neuropathy type: polyneuropathy associated with underlying disease Qualified Code(s): G63 - Polyneuropathy in diseases classified elsewhere Code(s): G62.9 - Polyneuropathy, unspecified Status: Acute Assessment and Plan: -chronic -nortriptyline discontinued prior to admission, will keep her off of that as it can cause syncope and should be used with caution in patient's with Parkinsons (3) Parkinsons disease: Code(s): G20 - Parkinson's disease Status: Acute Assessment and Plan: -continue home meds -follow up with her established neurologist (4) Grade II diastolic dysfunction: Code(s): I51.9 - Heart disease, unspecified Status: Acute Assessment and Plan: -echo reviewed (5) Hypertension: Code(s): I10 - Essential (primary) hypertension Status: Acute Assessment and Plan: -no prior diagnosis -somewhat labile in the 120s-160s systolic -advised her to keep a BP log with readings twice daily and take that with her to her pcp in 1 week to discuss possibly initiating an anti hypertensive DS: Summary Hospital Course Reason for hospitalization: 81 yo female w/ hx of Parkinsons admitted for syncopal episode. Please see HPI for further details. Hospital Course: Please see above for details of hospital course. Status at Discharge Cognitive/behavioral status at discharge: stable Functional status at discharge: independent ambulation Overall status at discharge: patient is progressing back to baseline Time Spent with Patient Time attestation: Total time spent providing and/or coordinating discharge services: 35 Time spent: Greater than 30 minutes Exam Narrative: GENERAL: The patient is well developed, not in acute distress HEENT: Nonicteric sclerae, PERRLA, EOMI. Oropharynx clear. Moist mucous membranes. Conjunctivae appear well perfused. CHEST: Chest wall is nontender. HEART: At times irregularly irregular, sinus rhythm on telemetry mild systolic murmur noted, no rubs, or gallops LUNGS: Clear to auscultation bilaterally. no respiratory distress ABDOMEN: Soft, positive bowel sounds, non-tender, no organomegaly. SKIN: No rash, no excessive bruising, petechiae, or purpura. NEUROLOGIC: Cranial nerves II-XII intact, alert and oriented x 3, no gross motor deficits fine tremor related to her underlying Parkinson's disease EXTREMITIES: no edema, cyanosis or clubbing DS: Data Data Completed and Pending Labs on day of discharge: Labs from last 24 hours 02/07/22 02/07/22 06:05 06:05 WBC 4.3 L RBC 4.28 Hgb 12.0 Hct 37.9 MCV
[2022-02-07 12:00] VITALS: PULSE 57
--- NOTE | 2022-02-07 13:25 | PC.NURSE ---
On 02/07/22, the student, [Glenn Pulido], provided care and completed [employer] documentation on this patient. I have reviewed the student's documentation and agree with the findings.
[2022-02-07 14:00] VITALS: BP 148/60; PULSE 63; RESP 16; TEMP 36.6; O2SAT 97
== END 2022-02-07 15:00 | disposition home or self-care (01) | DRG 312 ==
LOC: ANHED 21:19 → ANH2MED 23:12
PROVIDERS: Physician Assistant; Admitting Provider Internal Medicine; Emergency Provider Emergency Medicine; PCP Family Medicine; Visit Provider Internal Medicine
DX: R55 Syncope and collapse (principal); Z20.822 Contact with and (suspected) exposure to COVID-19; G20 Parkinson's disease; I51.9 Heart disease, unspecified; I10 Essential (primary) hypertension; E11.42 Type 2 diabetes mellitus with diabetic polyneuropathy
CPT/HCPCS: 36415; 70450; 70551; 72125; 80048; 84484; 85025; 85380; 85610; 85730; 93005; 93880; 93970; 96361; 96372; 96374; 96375; 97161; 97165; 99285; A9270; C8929; C9803; G0378; J1650; J2405; J7120; Q9957; U0003; U0005

== ENCOUNTER 2022-06-03 09:59 | Outpatient (CLI) | payer MEDICARE, SELFPAY ==
--- NOTE | ~2022-06-03 | DEXA_ITS ---
Bone Density Report Name: JENNIFER FRYE Age: 81 Sex: Female Ethnicity: White Date of : 1940 Indication: postmenopausal; screening for osteoporosis; height loss; Referring Provider: ADILSON LARA Study: Bone densitometry was performed. Exam Date: June 03, 2022 Accession number: [id number] Bone Density: Region BMD T-score Z-score Classification AP Spine(L1-L4) 0.889 -1.4 1.4 Osteopenia Femoral Neck (Left) 0.707 -1.3 1.2 Osteopenia Total Hip (Left) 0.668 -2.2 0.0 Osteopenia Femoral Neck (Right) 0.689 -1.4 1.0 Osteopenia Total Hip (Right) 0.677 -2.2 0.0 Osteopenia Total Hip Mean 0.673 -2.2 0.0 Osteopenia World Health Organization criteria for BMD impression classify patients as: Normal (T-score at or above -1.0), Osteopenia (T-score between -1.0 and -2.5), or Osteoporosis (T-score at or below -2.5). 10-year Fracture Risk(1): Major Osteoporotic Fracture 10% Hip Fracture 2.9% Reported Risk Factors: [place] (), Neck BMD=0.689, BMI=18.9 (1) FRAX(R) Version 3.08. Fracture probability calculated for an untreated patient. Fracture probability may be lower if the patient has received treatment. Clinical Information Provided by Patient: Has used the following medications: Vitamin D, Calcium Patient maximum height was 68 Menopause Age: 49 Drinks caffeinated beverages Onset of menses at age 12 Number of children 8 Impression: UNAPPROVED The patient has low bone mass, based on the Left Total Hip T-score. The patient has an estimated ten-year risk of hip fracture of 2.9% and an estimated ten-year risk of major fracture of 10%, based on the WHO FRAX algorithm. Discussion: UNAPPROVED BONE DENSITY IS LOW AT ONE OR MORE SKELETAL SITES. This patient's lowest T-score is low at one or more skeletal sites. It meets the World Health Organization's (WHO) criteria for ?low bone mass? (T-score between -1.0 and -2.5). The patient's 10-year risk of fracture as calculated by FRAX is less than the threshold where pharmacological therapy is recommended by the National Osteoporosis Foundation (NOF). However, all treatment decisions require clinical judgment and consideration of individual patient factors, including patient preferences, comorbidities, previous drug use, risk factors not captured in the FRAX model (e.g., frailty, falls, vitamin D deficiency, increased bone turnover, interval significant decline in bone density) and possible under or overestimation of fracture risk by FRAX. The patient should follow a healthful lifestyle (good nutrition with adequate calcium and vitamin D, and appropriate weight-bearing exercise). Follow-Up: UNAPPROVED Consider repeating this study in 2 to 3 years to reassess this patient's status, or sooner if there is some new clinical indicatio
== END 2022-06-03 10:00 | disposition home or self-care (01) ==
LOC: ANHIMG 10:00
PROVIDERS: PCP Family Medicine; Visit Provider Family Medicine
DX: Z78.0 Asymptomatic menopausal state (principal); M85.88 Other specified disorders of bone density and structure, other site; M85.851 Other specified disorders of bone density and structure, right thigh; M85.852 Other specified disorders of bone density and structure, left thigh
CPT/HCPCS: 77080

== ENCOUNTER 2022-07-30 10:54 | Outpatient (CLI) | payer MEDICARE, SELFPAY | END 2022-07-30 10:55 | disposition home or self-care (01) | LOC: ANHAUDIO 10:55 | PROVIDERS: PCP Family Medicine; Visit Provider Otolaryngology | DX: H91.93 Unspecified hearing loss, bilateral (principal) | CPT/HCPCS: 92557; 92567 ==

== ENCOUNTER 2022-08-19 13:57 | Outpatient (CLI) | payer MEDICARE, SELFPAY ==
--- NOTE | ~2022-08-19 | MR_ITS ---
EXAMINATION: MR IAC wo/w con DATE: 08/19/2022 15:05 INDICATION: Asymmetrical hearing loss. TECHNIQUE: Magnetic resonance imaging (MRI) of the brain, brainstem, and internal auditory canals was performed without and with 10 mL MultiHance intravenous contrast. COMPARISON: Brain MRI 02/06/2022, head CT 02/05/2022 FINDINGS: There are scattered areas of nonspecific increased T2-weighted signal intensity in the cere bral white matter, which is within normal limits for the patient's age. There is no intracranial hemo rrhage, acute infarction, or abnormal intracranial mass lesion. The ventricles are normal in size. Th e paranasal sinuses are clear. There are likely changes of ocular lens replacement surgeries. The mas toid air cells are normal. The internal auditory canals and inner and middle ears are normal. IMPRESSION: 1. Normal aging brain. Reviewed, dictated and finalized at location B. IMPRESSION: 1. Normal aging brain.
== END 2022-08-19 13:58 | disposition home or self-care (01) ==
PROVIDERS: PCP Family Medicine; Visit Provider Otolaryngology
DX: H90.3 Sensorineural hearing loss, bilateral (principal)
CPT/HCPCS: 70553; A9577

== ENCOUNTER → 2022-10-25 11:59 | Outpatient (CLI) | payer MEDICARE, SELFPAY ==
--- NOTE | ~2022-10-25 | XR_ITS ---
XR shoulder RT min 2V DATE: 10/25/2022 12:17 INDICATION: Adhesive capsulitis TECHNIQUE: 3 views COMPARISON: None FINDINGS: There is joint space narrowing and prominent periarticular spurring at the right glenohumer al joint consistent with severe osteoarthritis. Mild degenerative change of the right acromioclavicular joint. Osteopenia. No fracture, dislocation, periosteal reaction or bone destruction or significant abnormal calcificati on of the right shoulder is detected. IMPRESSION: Severe right glenohumeral osteoarthritis Osteopenia Reviewed, dictated and finalized at location B. ET STITCHER
== END ==
PROVIDERS: PCP Family Medicine; Visit Provider Family Medicine
DX: M75.00 Adhesive capsulitis of unspecified shoulder (principal); M19.011 Primary osteoarthritis, right shoulder; M85.811 Other specified disorders of bone density and structure, right shoulder
CPT/HCPCS: 73030

== ENCOUNTER → 2023-01-21 08:26 | Outpatient (CLI) | payer MEDICARE, SELFPAY ==
--- NOTE | ~2023-01-21 | US_ITS ---
EXAMINATION: US abdomen complete DATE: 01/21/2023 09:08 INDICATION: R10.9 - Unspecified abdominal pain TECHNIQUE: Multiple grayscale and Doppler ultrasound images of the abdomen were obtained. COMPARISON: None available. FINDINGS: The visualized portions of the pancreas are normal. The liver is normal with normal echogen icity and echotexture. No surface nodularity. Normal hepatopetal flow in the main portal vein. The ga llbladder is partially contracted, grossly normal with no abnormal wall thickening, pericholecystic f luid or stones. The common bile duct measures 5 mm. There was no sonographic Grady sign. The visuali zed portions of the aorta and inferior vena cava are normal. The right kidney measures 10.6 x 4.3 x 5.2. The left kidney measures 9.3 x 4.6 x 4.7. The kidneys dem onstrate normal parenchymal echogenicity. Simple right upper pole cyst. There is no hydronephrosis. T he spleen is normal in appearance and measures 7.8 cm. IMPRESSION: Normal abdominal ultrasound findings. Reviewed, dictated and finalized at location K. L [employer]
== END ==
PROVIDERS: PCP Family Medicine; Visit Provider Family Medicine
DX: R10.9 Unspecified abdominal pain (principal); R63.4 Abnormal weight loss
CPT/HCPCS: 76700

== ENCOUNTER 2023-02-10 22:48 | Emergency (ER) | payer MEDICARE, SELFPAY ==
--- NOTE | ~2023-02-10 | XR_ITS ---
EXAMINATION: XR chest 2V DATE: 02/11/2023 00:40 INDICATION: Cough. Chest congestion. TECHNIQUE: Frontal and lateral views of the chest were obtained. COMPARISON: Chest 2 views 04/20/2020, chest CT 10/16/2015 FINDINGS: There is mild scarring at right lung apex. There are mild airspace opacities at the lung ba ses. No pleural effusion or pneumothorax. The heart size is normal. Pectus excavatum is noted. IMPRESSION: 1. Mild airspace opacities at the lung bases, consistent with atelectasis/scarring versus pneumonia. Reviewed, dictated and finalized at location A. IMPRESSION: 1. Mild airspace opacities at the lung bases, consistent with atelectasis/scarr ing versus pneumonia.
[2023-02-10 22:52] VITALS: BP 191/102; PULSE 85; RESP 18; TEMP 36.4; O2SAT 95
[2023-02-10 23:47] LABS: Influenza A QL RT-PCR Negative (Negative); Influenza B QL RT-PCR Negative (Negative); SARS-CoV-2 RNA PCR Negative
[2023-02-11 04:26] VITALS: BP 188/88; PULSE 70; RESP 16; O2SAT 98
[2023-02-11 04:29] VITALS: O2SAT 97
--- NOTE | 2023-02-11 04:52 | ED.GENADULT ---
HPI - General Adult General Chief complaint: Upper Respiratory Infection Stated complaint: cough, fever, congestion, VALDIVIA x 1 week Time Seen by Provider: 02/11/23 04:34 History of Present Illness HPI narrative: Patient is a 82-year-old female who presents the emergency department with chief complaint of cough. The patient states that over the last week she has had a little bit of a low-grade cough been productive of some sputum patient reports she was concerned that she may be getting pneumonia Related Data Home Medications Medication Instructions Recorded Confirmed carbidopa 25 mg-levodopa 100 mg 1.5 tablet PO TID 11/02/20 01/16/23 tablet Allergies Allergy/AdvReac Type Severity Reaction Status Date / Time No Known Allergies Allergy Verified 02/10/23 22:49 Review of Systems Review of Systems: A 10 system review of systems was completed on the patient and is negative except for what is stated in the HPI. Nursing and ancillary documentation was reviewed. [facility] Past Medical History Medical History Dizziness Painful lumpy left breast Supraventricular tachycardia Family History Family History Grandparent Diabetes mellitus Family history of cardiovascular disease Sibling Family history of malignant neoplasm Mother Family history of Parkinson's disease Father Family history of pancreatic cancer Other Cerebrovascular accident Family history of malignant neoplasm of breast Social History Social History Smoking status: Never smoker Alcohol intake: current Drinks per week: 1 Substance use: never Substance use type: does not use Lack of Transportation: No Lack of Food: Never True Current Housing: I Have Housing Concerned About Future Housing: No Difficulty Paying Gas/Electric Bills: No Difficulty Paying for Meds: No Currently Unemployed: No Education: Bachelor's Degree Difficulty w/ Childcare or Family Care: No Spiritual care concerns: No Exam Narrative: GENERAL: Well-appearing, well-nourished, and in no acute distress. HEAD: Normocephalic, atraumatic. EYES: PERRLA and EOMI. ENT: Nares clear, no rhinorrhea or epistaxis. Mucous membranes moist. NECK: Supple. CHEST: Clear to auscultation. No respiratory distress. HEART: Regular rate and rhythm. No murmur heard. Normal peripheral pulses. ABDOMEN: Soft, nontender, nondistended, normal active bowel sounds. EXTREMITIES: Normal range of motion. No edema. SKIN: Warm, dry, no rash. NEURO: No focal deficits. Alert and oriented x3. PSYCH: Normal mood and affect. Course Vital Signs Vital signs: Vital Signs Temperature 36.4 C L 02/10/23 22:52 Pulse Rate 85 02/10/23 22:52 Respiratory Rate 18 02/10/23 22:52 Blood Pressure 191/102 H 02/10/23 22:52 Pulse Oximetry 95 02/10/23 22:52 Oxygen Delivery Room Air 02/10/23 22:52 Temperature 36.4 C L 02/10/23 22:52 Pulse Rate 74 02/11/23 05:16 Respiratory Rate 16 02/11/23 05:16 Blood Pressure 164/68 H 02/11/23 05:16 Pulse Oximetry 100 02/11/23 05:16 Oxygen Delivery Room Air 02/11/23 04:29 Medical Decision Making [facility] Narrative Medical decision making narrative: Differential diagnosis: Pneumonia, COVID, influenza, URI Chest x-ray showed some atelectasis versus infiltrate in the base Patient is COVID-negative influenza negative. The patient has current stable vital signs At this time laboratory studies were not indicated as the patient is hemodynamically stable and showing no signs of sepsis. Patient be started on doxycycline and Tessalon Perles for the cough Vital Signs Vital Signs: Vital Signs Temperature 36.4 C L 02/10/23 22:52 Pulse Rate 85 02/10/23 22:52 Respiratory Rate 18 02/10/23 22:52 Blood Pressure
[2023-02-11 05:16] VITALS: BP 164/68; PULSE 74; RESP 16; O2SAT 100
== END 2023-02-11 05:17 | disposition home or self-care (01) ==
LOC: ANHED 02-11 04:56
PROVIDERS: Emergency Medicine; Emergency Provider Emergency Medicine; PCP Family Medicine
DX: J18.9 Pneumonia, unspecified organism (principal); Z20.822 Contact with and (suspected) exposure to COVID-19
CPT/HCPCS: 71046; 87636; 99283

== ENCOUNTER 2023-08-15 12:37 | Outpatient (CLI) | payer MEDICARE, SELFPAY ==
--- NOTE | ~2023-08-15 | CT_ITS ---
EXAMINATION: CTA brain DATE: 08/15/2023 13:18 INDICATION: Right-sided pulsatile tinnitus. TECHNIQUE: Computed tomographic angiography (CTA) of the head was performed without and with 100 mL O mnipaque-350 intravenous contrast. Automated exposure control and iterative reconstruction technique were employed. The dose-length product was 1126.08 mGy-cm. Maximum intensity projection 3D reconstru ctions were created. Volume-rendered 3D reconstructions of the intracranial arteries were created by the technologist on a separate workstation. COMPARISON: Head CT 02/05/2022, brain MRI 08/19/2022 FINDINGS: There are scattered areas of low attenuation in the cerebral white matter, which is within normal limits for the patient's age. There is no intracranial hemorrhage, acute infarction, or abnorm al intracranial mass lesion. The ventricles are normal in size. There are likely changes of ocular le ns replacement surgeries. There is mild mucosal thickening in the ethmoid sinuses. The mastoid air ce lls are normal. The vertebral arteries are codominant. There is no significant stenosis of basilar ar darin or the posterior cerebral arteries. There is no significant stenosis of the intracranial interna l carotid arteries or anterior or middle cerebral arteries. Anterior communicating artery is normal. There is no aneurysm. IMPRESSION: 1. Normal aging brain. 2. No aneurysm or significant intracranial arterial stenosis. Reviewed, dictated and finalized at location E.
[2023-08-15 13:10] LABS: Estimated Glomerular Filt Rate > 60
== END 2023-08-15 12:38 | disposition home or self-care (01) ==
PROVIDERS: PCP Family Medicine; Visit Provider Otolaryngology
DX: H93.A1 Pulsatile tinnitus, right ear (principal)
CPT/HCPCS: 70496; Q9967

== ENCOUNTER 2023-09-24 13:06 | Outpatient (CLI) | payer MEDICARE, SELFPAY | END 2023-09-24 13:07 | disposition home or self-care (01) | LOC: ANHAUDASC 13:07 | PROVIDERS: PCP Family Medicine; Visit Provider Otolaryngology | DX: H90.3 Sensorineural hearing loss, bilateral (principal) | CPT/HCPCS: 92557; 92567 ==

== ENCOUNTER 2023-11-12 12:37 | Outpatient (CLI) | payer MEDICARE, SELFPAY ==
--- NOTE | ~2023-11-12 | MMUS_ITS ---
EXAMINATION: MM diagnostic melina BI w amberly, US breast LT limited HISTORY: Lump and pain in upper half of left breast TECHNIQUE: ML, MLO and CC 3-D tomosynthesis images of both breasts were performed and synthetic 2-D i mages were generated. CAD analysis was submitted and interpreted. High resolution upper inner and upp er outer quadrant left breast ultrasound was performed. COMPARISON: 10/31/2021 bilateral screening mammogram 05/09/2020 limited left breast ultrasound BREAST PARENCHYMAL COMPOSITION: The breasts are heterogeneously dense, which may obscure small masses . FINDINGS: MAMMOGRAPHIC FINDINGS: There are scattered bilateral benign calcifications including arterial and fibroadenomatous calcifica tions. No suspicious mass or architectural distortion, malignant calcification, skin thickening or retractio n of either breast is detected. ULTRASOUND: 12:00 2 cm from nipple: There is an irregular hypoechoic approximately 6.3 x 2.8 mm mass with posteri or shadowing. Ultrasound-guided biopsy is recommended. 3:00 2 cm from nipple: There is an irregular hypoechoic antiparallel lesion measuring up to 2.7 mm. U ltrasound-guided biopsy is recommended. IMPRESSION: 1. There are 2 suspicious hypoechoic lesions, at 12:00 2 cm from nipple and 3:00 2 cm from nipple 2. Ultrasound-guided biopsy of left 12:00 and 3:00 hypoechoic lesions is recommended BI-RADS category 4, suspicious findings. Dr. Butler telephoned the report and ultrasound-guided biopsy recommendations on 11/12/2023 at 1450 eli rs to [facility] voicemail Reviewed, dictated and finalized at location A. ER PROFESSIONAL IMPRESSION: 1. There are 2 suspicious hypoechoic lesions, at 12:00 2 cm from nipple and 3:0 0 2 cm from nipple 2. Ultrasound-guided biopsy of left 12:00 and 3:00 hypoechoic lesions is recomm ended BI-RADS category 4, suspicious findings. Dr. Butler telephoned the report and ultrasound-guided biopsy recommendations on 11/12/2023 at 1450 hours to [facility] voicemail
== END 2023-11-12 12:38 | disposition home or self-care (01) ==
LOC: ANHIMG 12:39
PROVIDERS: PCP Family Medicine; Visit Provider Physician Assistant
DX: N63.42 Unspecified lump in left breast, subareolar (principal); R92.8 Other abnormal and inconclusive findings on diagnostic imaging of breast
CPT/HCPCS: 76642; 77062; 77066; G0279

== ENCOUNTER 2023-11-26 10:26 | Outpatient (CLI) | payer MEDICARE, SELFPAY ==
--- NOTE | ~2023-11-26 | MMUS_ITS ---
EXAMINATION: MM post biopsy invasive LT, US breast biopsy LT w image DATE: 11/26/2023 11:52 (accession [id number]), 11/26/2023 11:53 (accession [id number]) INDICATION: Indeterminate masses at the 12:00 and 3:00 locations of the left breast on diagnostic mateo ging. Ultrasound-guided core biopsy is requested to evaluate for malignancy. TECHNIQUE AND FINDINGS: With real-time scanning, the round mass described at 3:00 location has a more cystic appearance. Atte ntion was directed to the mass at the 12:00 location. The risks and potential benefits of the procedu re were discussed with the patient including bleeding and infection. A time out was performed. The sk in of the left breast was prepared and draped in usual sterile fashion. 1% lidocaine was used for sup erficial anesthesia. 1% lidocaine with epinephrine was used for deep anesthesia. A vacuum-assisted biopsy needle was advanced through to the outer edge of the region of interest from a lateral approach utilizing sonographic guidance. A total of two tissue core samples were obtained through the lesion. After the second sample, the lesion was not readily visible. A tissue marker clip was then placed at the biopsy site. Hemostasis was achieved. A sterile bandage was applied. The patient tolerated procedure well and there was no evidence of immediate complication. The patient was given verbal instructions to return to the Emergency Department in the event of severe breast pa in or rapid breast enlargement. A two view left breast mammogram was obtained to document tissue rabia er clip placement. IMPRESSION: 1. Successful ultrasound-guided vacuum-assisted biopsy of left breast mass with tissue marker placeme nt. Reviewed, dictated and finalized at location A. UTIVE ASSISTANT TO PRESIDENT IMPRESSION: 1. Successful ultrasound-guided vacuum-assisted biopsy of left breast mass with tissue marker placement.
== END 2023-11-26 10:27 | disposition home or self-care (01) ==
LOC: ANHIMG 10:28
PROVIDERS: PCP Family Medicine; Visit Provider Family Medicine
DX: D24.2 Benign neoplasm of left breast (principal); N63.42 Unspecified lump in left breast, subareolar; N63.20 Unspecified lump in the left breast, unspecified quadrant
CPT/HCPCS: 19083; 88305; A4648

== ENCOUNTER 2023-12-19 17:04 | Emergency (ER) | payer MEDICARE, SELFPAY ==
[2023-12-19] VITALS (14 sets, daily range): BP systolic 119–188; BP diastolic 70–89; PULSE 68–91; RESP 16–29; TEMP 36.8; O2SAT 97–99
--- NOTE | ~2023-12-19 | XR_ITS ---
EXAMINATION: XR chest 2V DATE: 12/19/2023 18:36 INDICATION: Generalized weakness. Presyncope. TECHNIQUE: frontal and lateral views of the chest were obtained. COMPARISON: Chest radiograph dated 02/11/[address] dated 10/16/2015 FINDINGS: Persistent mild linear discoid atelectasis/scarring at the bilateral lung bases. No other airspace op acities, pulmonary edema, pleural effusion or pneumothorax. Borderline heart size can't for AP techni que. Thoracic kyphosis with moderate spondylosis. Pectus excavatum. Moderate polyarticular osteoarthr itis at the bilateral acromioclavicular and glenohumeral joints. IMPRESSION: 1. Stable appearance of mild bibasilar discoid atelectasis/scarring. No acute cardiopulmonary disease . Reviewed, dictated and finalized at location A. IR TECHNICIAN IMPRESSION: 1. Stable appearance of mild bibasilar discoid atelectasis/scarring. No acute c ardiopulmonary disease.
--- NOTE | 2023-12-19 18:19 | ECG_ITS ---
Measurements Intervals [place] Rate: 65 P: 93 IN: 227 QRS: 6 QRSD: 97 T: 33 QT: 377 QTc: 392 Interpretive Statements SINUS RHYTHM WITH FIRST DEGREE AV BLOCK WITH OCCASIONAL SUPRAVENTRICULAR PREMATURE COMPLEXES POSSIBLE RIGHT VENTRICULAR CONDUCTION DELAY Electronically Signed On 12-21-2023 11:32:10 FORM TAMPER by Yrn Bourgeois M.D.
[2023-12-19 18:35] LABS: Basophils Percent Auto 0.4 % (0.2-1.2); Eosinophils Absolute Auto 0.1 K/mm3 (0-0.3); Eosinophils Percent Auto 0.5 % (0-4.4); Hematocrit 44.7 % (37.0-47.0); Hemoglobin 14.1 g/dL (12.0-15.0); Immature Granulocyte Absolute 0.03 K/mm3 (0.00-0.031); Immature Granulocyte Percent A 0.3 % (0-0.5); Lymphocytes Absolute Auto 2.31 K/mm3 (0.9-3.2); Lymphocytes Percent Auto 21.4 % (18.3-44.2); Mean Corpuscular HGB Conc 31.5 g/dl (32-36); Mean Corpuscular Hemoglobin 28.4 pg (26-34); Mean Corpuscular Volume 90.1 fl (80-100); Mean Platelet Volume 10.1 fl (7.4-10.4); Monocytes Absolute Auto 0.8 K/mm3 (0.1-0.6); Neutrophils Absolute Auto 7.6 K/mm3 (1.3-6.7); Neutrophils Percent Auto 70.4 % (45.5-73.1); Nucleated Red Blood Cells Perc 0.2 % (0.0-0.2); Platelet Count Result 245 k/mm3 (150-375); Red Blood Count 4.96 M/mm3 (4.2-5.4); Red Cell Distribution Width 13.9 % (11.5-14.5); White Blood Count 10.8 K/mm3 (4.5-10.0)
[2023-12-19 18:45] LABS: Alanine Aminotransferase 12 U/L (6-35); Albumin Level 4.3 g/dL (3.5-5.1); Alkaline Phosphatase 75 U/L (38-126); Anion Gap 5 mmol/L (8-16); Aspartate Amino Transferase 31 U/L (14-36); Bilirubin,Total 0.4 mg/dL (0.2-1.3); Blood Urea Nitrogen 19 mg/dL (7-17); Calcium 10.2 mg/dL (8.4-10.2); Carbon Dioxide 30 mmol/L (22-30); Chloride 100 mmol/L (98-107); Estimated CRCL calculation 56 ml/min; Estimated Glomerular Filt Rate > 60; Glucose 108 mg/dL (65-110); Potassium 4.5 mmol/L (3.4-5.0); Sodium 135 mmol/L (137-145)
[2023-12-19 19:14] LABS: Appearance Urine Clear (Clear); Bilirubin Urine Negative (Negative); Blood Urine Negative (Negative); Color Urine Yellow (Yellow); Glucose Urine UA Negative (Negative); Ketones Urine Trace mg/dL (Negative); Leukocyte Esterase Ur Negative LEU/UL (Negative); Nitrate Urine Negative (Negative); Protein Urine Negative (Negative); Urobilinogen Urine 0.2 mg/dL (<2.0)
[2023-12-19 19:17] LABS: Add Urine Microscopic? NO
--- NOTE | 2023-12-19 20:15 | PC.NURSE ---
Pt ambulated w steady gait from wheelchair to bed w no c/o dizziness at this time.
--- NOTE | 2023-12-19 20:50 | ED.DIZZY ---
HPI - Dizziness General Chief Complaint: Dizziness Stated Complaint: dizzy Time Seen by Provider: 12/19/23 20:12 History of Present Illness HPI Narrative: Patient is an 83-year-old female with a history of Parkinson's presenting with lightheadedness. Patient states that she noticed while walking that she felt lightheaded and that she was about to pass out. Associated with nausea. States that she sat down and put her head between her legs but it continued so she called EMS. States that her symptoms have resolved and have not reoccurred. no chest pain, shortness of breath, palpitations, leg swelling. No focal numbness or weakness, vision or speech change, abdominal pain, vomiting. Related Data Home Medications Medication Instructions Recorded Confirmed carbidopa 25 mg-levodopa 100 mg 2 tablet PO TID 08/12/23 10/16/23 tablet Allergies Allergy/AdvReac Type Severity Reaction Status Date / Time No Known Allergies Allergy Verified 12/19/23 20:20 Review of Systems Review of Systems: All systems reviewed & are unremarkable except as noted in HPI and below PMFSH Past Medical History Medical History Dizziness Painful lumpy left breast Supraventricular tachycardia Family History Family History Grandparent Diabetes mellitus Family history of cardiovascular disease Sibling Family history of malignant neoplasm Mother Family history of Parkinson's disease Father Family history of pancreatic cancer Other Cerebrovascular accident Family history of malignant neoplasm of breast Social History Social History Social History: Caffeine-rarely Smoking status: Never smoker Alcohol intake: current Drinks per week: 1 Substance use: never Substance use type: does not use Lack of Transportation: No Lack of Food: Never True Current Housing: I Have Housing Concerned About Future Housing: No Difficulty Paying Gas/Electric Bills: No Difficulty Paying for Meds: No Currently Unemployed: No Education: Bachelor's Degree Difficulty w/ Childcare or Family Care: No Spiritual care concerns: No Exam Narrative: GENERAL: Well-appearing, in no acute distress, pleasant cooperative HEAD: Normocephalic, atraumatic. EYES: PERRLA and EOMI. ENT: Mucous membranes moist. NECK: Supple. CHEST: Clear to auscultation. No respiratory distress. HEART: Regular rate and rhythm ABDOMEN: Soft, nontender, nondistended EXTREMITIES: Normal range of motion. No edema. SKIN: Warm, dry, no rash. NEURO: No focal deficits. Alert and oriented x3. + parkinsonian tremor PSYCH: Normal mood and affect. Course Vital Signs Vital signs: Vital Signs Temperature 98.3 F 12/19/23 18:11 Pulse Rate 68 12/19/23 18:11 Respiratory Rate 16 12/19/23 18:11 Blood Pressure 168/72 H 12/19/23 18:11 Pulse Oximetry 98 12/19/23 18:11 Oxygen Delivery Room Air 12/19/23 18:11 Temperature 98.3 F 12/19/23 18:11 Pulse Rate 91 12/19/23 20:55 Respiratory Rate 20 12/19/23 20:16 Blood Pressure 119/89 12/19/23 20:55 Pulse Oximetry 97 12/19/23 20:16 Oxygen Delivery Room Air 12/19/23 20:15 MDM - Dizziness MDM Narrative Medical decision making narrative: 83-year-old female presenting after an episode of lightheadedness. Vitals stable, exam remarkable for the above. EKG per my interpretation shows normal sinus rhythm, first-degree AV block, no ST elevations or depressions. Patient is dry on metabolic panel. Troponin undetectable. ortho stats prior to IV hydration were positive because of a decrease in systolic pressure. Patient denies any symptoms. She has actually been ambulating to the restroom without any difficulty. UA is unremarkable. Chest x-ray without acute abnormalities. Suspect the surjit
[2023-12-19] MEDS: SODIUM CHLORIDE 0.9% IV 1,000 ML 999 ML IV CONT (20:58)
--- NOTE | 2023-12-19 21:06 | PC.NURSE ---
Lipase and Trop I added on to blood in lab at this time.
[2023-12-19 21:22] LABS: Lipase 127 U/L (23-300)
[2023-12-19 21:35] LABS: Troponin I < 0.012 ng/mL (0.000-0.034)
== END 2023-12-19 23:01 | disposition home or self-care (01) ==
PROVIDERS: Student in an Organized Health Care Education/Training Program; Emergency Provider Emergency Medicine; PCP Family Medicine
DX: R42 Dizziness and giddiness (principal); E86.0 Dehydration; G20.A1 Parkinson's disease without dyskinesia, without mention of fluctuations; I44.0 Atrioventricular block, first degree; I49.1 Atrial premature depolarization
CPT/HCPCS: 36415; 71046; 80053; 81003; 83690; 84484; 85025; 93005; 96360; 99284; J7030

== ENCOUNTER 2024-02-11 12:34 | Outpatient (CLI) | payer MEDICARE, SELFPAY ==
[2024-02-11 18:35] LABS: Basophils Percent Auto 0.6 % (0.2-1.2); Eosinophils Absolute Auto 0.1 K/mm3 (0-0.3); Eosinophils Percent Auto 1.5 % (0-4.4); Hematocrit 42.1 % (37.0-47.0); Hemoglobin 13.2 g/dL (12.0-15.0); Immature Granulocyte Absolute 0.01 K/mm3 (0.00-0.031); Immature Granulocyte Percent A 0.1 % (0-0.5); Lymphocytes Absolute Auto 1.99 K/mm3 (0.9-3.2); Lymphocytes Percent Auto 29.7 % (18.3-44.2); Mean Corpuscular HGB Conc 31.4 g/dl (32-36); Mean Corpuscular Hemoglobin 28.4 pg (26-34); Mean Corpuscular Volume 90.7 fl (80-100); Mean Platelet Volume 10.7 fl (7.4-10.4); Monocytes Absolute Auto 0.7 K/mm3 (0.1-0.6); Monocytes Percent Auto 10.7 % (2.6-8.5); Neutrophils Absolute Auto 3.9 K/mm3 (1.3-6.7); Neutrophils Percent Auto 57.4 % (45.5-73.1); Platelet Count Result 264 k/mm3 (150-375); Red Blood Count 4.64 M/mm3 (4.2-5.4); Red Cell Distribution Width 13.8 % (11.5-14.5); White Blood Count 6.7 K/mm3 (4.5-10.0)
== END 2024-02-11 12:35 | disposition home or self-care (01) ==
PROVIDERS: PCP Family Medicine; Visit Provider Family Medicine
DX: D72.829 Elevated white blood cell count, unspecified (principal)
CPT/HCPCS: 36415; 85025

== ENCOUNTER 2024-12-31 09:16 | Outpatient (CLI) | payer MEDICARE, SELFPAY ==
--- NOTE | ~2024-12-31 | XR_ITS ---
HISTORY: S99.929A - Unspecified injury of unspecified foot, initia... COMPARISON: None TECHNIQUE: 3 views of the left foot performed FINDINGS: Acute fracture of the base of the fifth metatarsal is identified with approximately 2.5 cm of separat ion of the fracture fragment. Overlying soft tissue swelling is noted. No additional fracture deformities are present. IMPRESSION: Fracture of the base of the fifth metatarsal with separation of the fracture fragment. Reviewed, dictated and finalized at location A. AL CHAIR ASSEMBLER IMPRESSION: Fracture of the base of the fifth metatarsal with separation of th e fracture fragment.
== END 2024-12-31 09:17 | disposition home or self-care (01) ==
LOC: GOSHIMG 09:17
PROVIDERS: PCP Family Medicine; Visit Provider Student in an Organized Health Care Education/Training Program
DX: S92.352A Displaced fracture of fifth metatarsal bone, left foot, initial encounter for closed fracture (principal); X58.XXXA Exposure to other specified factors, initial encounter
CPT/HCPCS: 73630

== ENCOUNTER 2025-08-19 12:51 | Outpatient (CLI) | payer MEDICARE, SELFPAY ==
--- OUTSIDE RECORDS SUMMARY | 2025-08-19 12:57 | XMS_ITS | Clinical Summary ---
Author Organization [facility] Address [address] [address] Care Team Providers Care Forest Supervisor Name Role Phone Zamzam Myrick MD Primary Care Provider + Allergies No known active allergies Medications carbidopa-levod opa (SINEMET) 25-100 mg per tablet 04/06/2022 Active nortriptyline (PAMELOR) 25 mg capsule Take 25 mg by mouth nightly Active cholecalciferol (VITAMIN D-3) 1,000 unit capsule Take 1,000 Units by mouth daily Active ascorbic acid (vitamin C) 100 mg tablet Take 100 mg by mouth daily Active zinc 50 mg tablet Take by mouth Active Active Problems Problem Noted Date Diagnosed Date Pulsatile tinnitus of right ear 02/05/2024 Syncope and collapse 06/21/2022 Premature atrial contractions 06/21/2022 Parkinsons disease 06/21/2022 Palpitations 06/21/2022 Mixed hyperlipidemia 06/21/2022 Mass of breast 12/13/2016 Disorder of lung 11/23/2015 Abnormal mammogram 07/22/2013 Surgical History Surgery Date Site/Laterality Comments TONSILLECTOMY age 5 Medical History Medical History Date Comments Dizziness SVT (supraventricular tachycardia) Parkinson disease (HCC) Syncope and collapse Weight loss Neuropathy Gastroesophageal reflux disease with esophagitis Family History Medical History Relation Name Comments Pancreatic cancer Father Parkinson's Disease Mother Heart disease Paternal Grandfather Relation Name Status Comments Father Mother Paternal Grandfather Social History Tobacco Use Types Packs/Day Years Used Date Smoking Tobacco: Never Tobacco Cessation:Counseling Given: Not Answered Personal Safety Answer Date Recorded Getting School Help Needed Not on file 01/05 Comments Unknown Sex and Gender Information Value Date Recorded Sex Assigned at Not on file Legal Sex Female 3:51 AM METALLURGICAL ENGINEER Gender Identity Not on file Sexual Orientation Not on file Obstetrics History Last Filed Vital Signs Vital Sign Reading Time Taken Comments Blood Pressure 136/70 06/21/2022 10:56 AM CDT Pulse 66 06/21/2022 10:56 AM CDT Temperature 36.5 C (97.7 F) 04/06/2020 12:01 PM CDT Respiratory Rate - - Oxygen Saturation 96% 06/21/2022 10:56 AM CDT Inhaled Oxygen Concentration - - Weight 53.3 kg (117 lb 6.4 oz) 02/05/2024 11:41 AM CDT Height 170.2 cm (5' 7) 02/05/2024 11:41 AM CDT Body Mass Index 18.39 02/05/2024 11:41 AM CDT Plan of Treatment Health Maintenance Due Date Last Done Comments Depression Screening 1940 Fall Risk Assessment 1940 Osteoporosis Screening-Bone Density Scan 1939 DTaP/Tdap/Td Vaccine (1 - Tdap) 1950 Hepatitis B Screening 1957 Pneumococcal vaccine 65+ (1 of 1 - PCV) 1989 Zoster Vaccine (1 of 2) 1989 Well Visit 65+ 2004 Influenza Vaccine (#1) 2025 10/07/2019, 2014 Insurance MEDICARE [facility] MEDICARE [facility] [address] [place] [address] Care Teams Forest Supervisor Relationship Specialty Start Date End Date Zamzam Myrick MD PCP - General Family Medicine 04/06/20
--- OUTSIDE RECORDS SUMMARY | 2025-08-19 12:57 | XMS_ITS | Clinical Summary ---
Author Organization [facility] Address [address] [place] [address] Care Team Providers Care Steam And Power Superintendent Name Role Phone Unavailable Primary Care Provider Unavailabl e Source Comments [facility],non-owned Affiliates and Associated Physician Practices is amultiple site organization consisting of ambulatory clinics and hospital sitesin [place], [place], [place] and [place]. This disclosure is being madepursuant to the Care Everywhere program and may not contain all information available regarding this patient. Last updated 18.[facility] [employer]) Social History Tobacco Use Types Packs/Day Years Used Date Smoking Tobacco: Never Assessed Comments Unknown Sex and Gender Information Value Date Recorded Sex Assigned at Not on file Legal Sex Female 10:23 AM CDT Gender Identity Not on file Sexual Orientation Not on file Plan of Treatment Health Maintenance Due Date Last Done Comments BONE DENSITY TESTING 1940 MEDICARE AWV 12 MONTHS 1939 DTAP/TDAP/TD VACCINES (1 - Tdap) 1958 PNEUMOCOCCAL VACCINE 50+ (1 of 1 - PCV) 1989 ZOSTER VACCINE (1 of 2) 1989 Respiratory Syncytial Virus (RSV) Vaccine Pt: or over 60 yrs (1 - 1-dose 75+ series) 2014 DEPRESSION SCREENING 11/17/2024 COVID-19 VACCINE ( - 2023-2 5 season) 2025 INFLUENZA VACCINE (#1) 2025 HEPATITIS B VACCINE Aged Out No longe r eligible based on patient's age to complete this topic HIB VACCINE Aged Out No longer eligi ble based on patient's age to complete this topic HPV VACCINE Aged Out No longer eligi ble based on patient's age to complete this topic MENINGOCOCCAL (Group B) VACC INE SHARED DECISION-MAKING Aged Out No longer eligibl e based on patient's age to complete this topic MENINGOCOCCAL GROUPS A/C/Y/W VACCINE Aged Out No longer eligible b ased on patient's age to complete this topic Insurance MEDICARE [facility]
--- OUTSIDE RECORDS SUMMARY | 2025-08-19 12:57 | XMS_ITS | Encounter Summary ---
Author Organization [facility] Address [address] [place] [address] Care Team Providers Care Brick Molder Hand Name Role Phone Zamzam Myrick MD Primary Care Provider [phone] Reason for Visit * Reason Comments Medication Refill Encounter Details Date Type Department Care Team (Late st Contact Info) Description 01/30/2020 Refill [facility] [address] [place] [phone] Fernando Dudley MD [address] [facility] [address] [place] [phone] Social History Tobacco Use Types Packs/Day Years Used Date Smoking Tobacco: Never Smokeless Tobacco: Never Alcohol Use Standard Drinks/Week Comments Not Asked 0 (1 standard drink = 0.6 oz pur e alcohol) Comments Unknown Sex and Gender Information Value Date Recorded Sex Assigned at Female 07/17/2024 4:55 PM CDT Legal Sex Female 8:42 AM COMMERCIAL PRODUCER Gender Identity Female 07/17/2024 4:55 PM CDT Sexual Orientation Straight 07/17/2024 4: 55 PM CDT documented as of this encounter Miscellaneous Notes * Telephone Encounter - Fernando Dudley MD - 02/09/2020 2:00 PM CDT In light of this pandemic, I am going to approve 30-day supply. * Telephone Encounter - Joan Mix - 02/01/2020 1:12 PM CDT Left a voicemail asking that the pt call the office to setup and appointment with Ingrid in order to get a refill on her medication. * Telephone Encounter - Fernando Dudley MD - 02/01/2020 10:57 AM CDT Please have her at least set up a follow-up with Ingrid. Then I will approve 30-day supply. * Telephone Encounter - Joan Mix - 01/31/2020 9:12 AM CDT Last Office Visit:01/26/2019 Next Office Visit:no showed last appt 01/25/2020. No appt scheduled Last Ordered:01/18/2019 documented in this encounter Plan of Treatment Upcoming Encounters Date Type Department Care Team (Late st Contact Info) Description 06/30/2026 3:30 PM CDT Office Visit [facility] [address] [place] [address] Fernando Dudley MD [address] [facility] [address] [address] documented as of this encounter Visit Diagnoses Not on filedocumented in this encounter Care Teams Brick Molder Hand Relationship Specialty Start Date End Date Zamzam Myrick MD PCP - General Family Practice 12/28/15 documented as of this encounter
--- OUTSIDE RECORDS SUMMARY | 2025-08-19 12:57 | XMS_ITS | Clinical Summary ---
Author Organization [facility] Address [address] [place] [address] Phone Care Team Providers Care Burr Grinder Name Role Phone Zamzam Myrick MD Primary Care Provider [phone] Allergies No known active allergies Medications calcium-choleca lciferol (OS-SRINIVASAN 500+D) 500 mg(1,250mg) -200 unit tablet Take 1 Tablet by mouth daily. Active cholecalciferol , Vitamin D3, (VITAMIN D3) 1,000 unit Capsule Take 1,000 Units by mouth daily. Active ascorbic acid, vitamin C, (VITAMIN C) 100 mg Tablet Take 100 mg by mouth daily. Active zinc 50 mg Tablet Take by mouth. Active MULTIVITAMIN ORAL Take by mouth. Active LISINOPRIL ORAL Take by mouth. Active verapamil HCl (VERAPAMIL ORAL) Take by mouth. Active carbidopa-levod opa (SINEMET) 25-100 mg tabletIndicatio ns:Parkinson's disease (CMS/HCC) Pt taking 2 tab in a.m., 1 tab midday, 2 tab in the evening daily. 450 Tablet 3 2025 Active Active Problems Problem Noted Date Diagnosed Date Pulmonary nodules/lesions, multiple 12/28/2015 Overview (12/28/2015): In RUL, RML and AVINASH Encounters Date Type Department Care Team Description 07/19/2025 External Device Data STL ABSTRACTION Provider, Abstract 07/06/2025 External Device Data STL ABSTRACTION Provider, Abstract 2025 Refill [facility] Neurology [address] [place] [phone] Fernando Dudley MD Parkinson's disease ([facility]) 06/22/2025 External Device Data STL ABSTRACTION Provider, Abstract 06/01/2025 External Device Data STL ABSTRACTION Provider, Abstract 06/01/2025 External Device Data STL ABSTRACTION Provider, Abstract 06/01/2025 External Device Data STL ABSTRACTION Provider, Abstract from Last 3 Months Immunizations Immunization Administration Dates Next Due Influenza Seasonal Unspecified Formulation IM Family History Medical History Relation Name Comments Cancer Father Tuberculosis Maternal Aunt Diabetes Maternal Grandfather Tuberculosis Maternal Grandmother Heart Failure Paternal Grandfather Cancer Sister 1 Bronchitis Sister 2 Asthma Neg Hx Emphysema Neg Hx Hypertension Neg Hx Lung Cancer Neg Hx Mesothelioma Neg Hx Relation Name Status Comments Father Maternal Aunt Maternal Grandfather Maternal Grandmother Paternal Grandfather Sister 1 Sister 2 Social History Tobacco Use Types Packs/Day Years Used Date Smoking Tobacco: Never Smokeless Tobacco: Never Tobacco Cessation:Counseling Given: Not Answered Alcohol Use Standard Drinks/Week Comments Not Asked 0 (1 standard drink = 0.6 oz pur e alcohol) Comments No Sex and Gender Information Value Date Recorded Sex Assigned at Female 07/17/2024 4:55 PM CDT Legal Sex Female 8:42 AM MICROSOFT DEVELOPER Gender Identity Female 07/17/2024 4:55 PM CDT Sexual Orientation Straight 07/17/2024 4: 55 PM CDT Last Filed Vital Signs Vital Sign Reading Time Taken Comments Blood Pressure 126/64 09/26/2023 12:24 PM MICROSOFT DEVELOPER Pulse 62 09/10/2023 2:15 PM CDT Temperature - - Respiratory Rate 16 12/28/2015 3:07 PM MICROSOFT DEVELOPER Oxygen Saturation 95% 09/10/2023 2:15 PM CDT Inhaled Oxygen Concentration - - Weight 52.5 kg (115 lb 12.8 oz) 08/09/2024 2:52 PM CDT Height 170.2 cm (5' 7) 08/09/2024 2:52 PM CDT Body Mass Index 18.14 08/09/2024 2:52 PM CDT Plan of Treatment Upcoming Encounters Date Type Department Care Team (Late st Contact Info) Description 06/30/2026 3:30 PM CDT Office Visit [facility] Neurology [address] [place] [address] Fernando Dudley MD [address] [facility] [address] [address] Health Maintenance Due Date Last Done Comments DTAP/TDAP/TD VACCINES (1 - Tdap) 1959 PNEUMOCOCCAL VACCINE 50+ YEA RS (1 of 1 - PCV) 1989 ZOSTER VACCINE (1 of 2) 1989 RSV VACCINE (60+ or ) (1 - 1-dose 75+ series) 2014 INFLUENZA VACCINE (#1) 2025 11/01/2015 OSTEOPOROSIS SCREENING 06/03/2027 06/03/2022, 2016 COLORECTAL SCREENING Discontinued 04/07/2017 Colorectal Cancer Screening Discontinued FIT-DNA Q 3 years Discontinued FIT/FOBT Q 1 year Discontinued Flex Sig/CT Colonography Q 5 years Discontinued Insurance MEDICARE PART A AND B [facility] SUPP Care Teams Burr Grinder Relationship Specialty Start Date End Date Zamzam Myrick MD PCP - General Family Practice 12/28/15
== END 2025-08-19 12:52 | disposition home or self-care (01) ==
LOC: ANHAUDASC 12:51
PROVIDERS: PCP Family Medicine; Visit Provider Otolaryngology
DX: H90.3 Sensorineural hearing loss, bilateral (principal); H61.22 Impacted cerumen, left ear; J30.2 Other seasonal allergic rhinitis
CPT/HCPCS: 92557; 92567

== ENCOUNTER 2025-10-05 12:40 | Outpatient (CLI) | payer MEDICARE, SELFPAY ==
--- NOTE | ~2025-10-05 | MM_ITS ---
EXAMINATION: MM screening mammo BI HISTORY: Screening TECHNIQUE: Craniocaudal and mediolateral oblique 3-D tomosynthesis images were obtained and synthetic 2-D images were generated. CAD analysis was submitted and interpreted. COMPARISON: Comparison to multiple prior studies sequentially, with oldest reviewed study dated 02/01/2009. BREAST PARENCHYMAL COMPOSITION: Dense: The breasts are heterogeneously dense, which may obscure small masses. FINDINGS: There is no evidence of suspicious mass, calcification, or architectural distortion to suggest malignancy in either breast. Scattered benign-appearing calcifications are present. IMPRESSION: 1. No mammographic evidence of malignancy. 2. Recommend routine screening mammography in one year. BI-RADS Category 2: Benign finding(s). Reviewed, dictated and finalized at location B. E DRILLER
--- NOTE | ~2025-10-05 | DEXA_ITS ---
Bone Density Report Name: JENNIFER FRYE Age: 85 Sex: Female Ethnicity: White Date of : 1940 Indication: osteopenia; height loss; Referring Provider: SUSI MONTANO Study: Bone densitometry was performed. Exam Date: October 05, 2025 Accession number: [id number] Bone Density: Region BMD T-score Z-score Classification AP Spine(L1-L4) 0.776 -2.5 0.4 Osteoporosis Femoral Neck (Left) 0.616 -2.1 0.4 Osteopenia Total Hip (Left) 0.708 -1.9 0.4 Osteopenia Femoral Neck (Right) 0.696 -1.4 1.1 Osteopenia Total Hip (Right) 0.689 -2.1 0.3 Osteopenia Total Hip Mean 0.699 -2.0 0.4 Osteopenia World Health Organization criteria for BMD impression classify patients as: Normal (T-score at or above -1.0), Osteopenia (T-score between -1.0 and -2.5), or Osteoporosis (T-score at or below -2.5). 10-year Fracture Risk: FRAX not reported because: Some T-score for Spine Total or Hip Total or Femoral Neck at or below -2.5 Previous Exams: Region Exam Age BMD T-score BMD Change BMD Change Date g/cm2 vs Baseline vs Previous AP Spine (L1-L4) 10/05/2025 85 0.776 -2.5 -0.130 (-14.3% -0.112 (-12.6% 06/03/2022 81 0.889 -1.4 -0.018 (-2.0%) -0.018 (-2.0%) 12/13/2016 76 0.906 -1.3 Total Hip(Left) 10/05/2025 85 0.708 -1.9 -0.110 (-13.5% 0.040 (5.9%)* 06/03/2022 81 0.668 -2.2 -0.150 (-18.3% -0.150 (-18.3% 12/13/2016 76 0.818 -1.0 Total Hip(Right) 10/05/2025 85 0.689 -2.1 -0.111 (-13.8% 0.012 (1.8%) 06/03/2022 81 0.677 -2.2 -0.123 (-15.4% -0.123 (-15.4% 12/13/2016 76 0.800 -1.2 *Denotes significance at 95% confidence level, LSC for AP Spine = 0.022 g/cm2, LSC for Total Hip = 0.027 g/cm2 Clinical Information Provided by Patient: Has used the following medications: Vitamin D, Calcium Patient maximum height was 68 Menopause Age: 49 No regular weight bearing exercise Drinks caffeinated beverages Onset of menses at age 12 Number of children 6 Impression: The patient has osteoporosis, based on the Total Spine T-score. The BMD for the AP Spine (L1-L4) decreased, changing by -12.6% since the last DXA exam. Discussion: INCREASED RISK OF FRACTURE. BONE DENSITY IS UNDESIRABLY LOW AT ONE OR MORE SKELETAL SITES, CONSISTENT WITH POSTMENOPAUSAL OSTEOPOROSIS. This patient's lowest T-score meets the World Health Organization's (WHO) criteria for osteoporosis at one or more sites (T-score -2.5 or below). In untreated patients, the risk of osteoporotic fracture increases approximately two-fold for each 1.0 SD decrease in T-score. Low bone density is not the only risk factor for fracture; also consider factors such as patient's age, frailty or poor health, risk of falling, risk of injury, previous osteoporotic fracture, family history of osteoporosis, cigarette smoking, low body weight, etc. Not everyone with low bone mineral density has osteoporosis; osteomalacia and other metabolic bone disorders should also be considered. Patients who have osteoporosis should be evaluated for specific diseases and conditions (secondary causes) that may cause or contribute to bone loss. The [place] Association of Clinical Endocrinologists (AACE) and National Osteoporosis Foundation (NOF) recommend pharmacologic intervention for all postmenopausal women whose T-score is in this range. The patient should follow a healthful lifestyle (good nutrition with adequate calcium and vitamin D, and appropriate weight-bearing exercise). Follow-Up: Consider a repeat BMD and Vertebral Fracture Assessment (VFA) exam in 2 years or sooner if medically necessary, to reassess this patient's status. Reported by: QUIQUE on 10/05/2025 1:23:00 PM. Reviewed, dictated and finalized at location A.
== END 2025-10-05 12:41 | disposition home or self-care (01) ==
LOC: ANHFOHIMG 12:41
PROVIDERS: PCP Family Medicine; Visit Provider Student in an Organized Health Care Education/Training Program
DX: Z12.31 Encounter for screening mammogram for malignant neoplasm of breast (principal); M81.0 Age-related osteoporosis without current pathological fracture; M85.89 Other specified disorders of bone density and structure, multiple sites; Z78.0 Asymptomatic menopausal state
CPT/HCPCS: 77067; 77080

== ENCOUNTER 2025-11-02 11:17 | Outpatient (CLI) | payer MEDICARE, SELFPAY ==
--- NOTE | ~2025-11-02 | CT_ITS ---
EXAMINATION: CT brain wo/w con, 11/02/2025 11:55 VETERINARY MEAT INSPECTOR HISTORY: G20.B1 - Parkinson's disease with dyskinesia, without men... COMPARISON: No comparisons available. Technique: Axial images obtained of the brain without and with intravenous contrast. One or more of the following dose reduction techniques were used: automated exposure control, adjustment of the mA and/or kV according to patient size, use of iterative reconstruction technique. Findings: No acute infarct or parenchymal hemorrhage. No abnormal enhancement No abnormal mass or mass effect. No midline shift. No extra-axial fluid collections. No hydrocephalus. Mastoid air cells unremarkable. Sinuses and orbits unremarkable. No acute fracture. No significant facial or scalp soft tissue swelling evident. No radiopaque foreign body is seen. Impression: 1.No acute intracranial abnormality. Reviewed, dictated and finalized at location . RINARY MEAT INSPECTOR Impression: 1.No acute intracranial abnormality.
--- OUTSIDE RECORDS SUMMARY | 2025-11-02 13:37 | XMS_ITS | Clinical Summary ---
Author Organization [facility] Address [address] [place] [address] Phone Care Team Providers Care Service Bar Cashier Name Role Phone Zamzam Myrick MD Primary Care Provider [phone] Allergies No known active allergies Medications calcium-choleca [...] Overview (12/28/2015): In RUL, RML and AVINASH Immunizations Immunization Administration Dates Next Due Influenza [...] PM CDT Legal Sex Female 8:42 AM SWEATBAND DRUMMER Gender Identity Female 07/17/2024 4:55 PM CDT Sexual Orientation Straight 07/17/2024 4: 55 PM CDT Last Filed Vital Signs Vital Sign Reading Time Taken Comments Blood Pressure 126/64 09/26/2023 12:24 PM SWEATBAND DRUMMER Pulse 62 09/10/2023 2:15 PM CDT Temperature - - Respiratory Rate 16 12/28/2015 3:07 PM SWEATBAND DRUMMER Oxygen Saturation 95% 09/10/2023 2:15 PM CDT Inhaled Oxygen Concentration - - Weight 52.5 kg (115 lb 12.8 oz) 08/09/2024 2:52 PM CDT Height 170.2 cm (5' 7) 08/09/2024 2:52 PM CDT Body Mass Index 18.14 08/09/2024 2:52 PM CDT Plan of Treatment Upcoming Encounters Date Type Department Care Team (Late st Contact Info) Description 06/30/2026 3:30 PM CDT Office Visit [facility] Neurology [address] [place] [address] Fernando Dudley MD [address] [facility] [address] [address] Health Maintenance Due Date Last [...] Discontinued Insurance MEDICARE PART A AND B BC[employer] SUPP Care Teams Service Bar Cashier Relationship Specialty Start Date End Date Zamzam Myrick MD PCP - General Family Practice 12/28/15
--- OUTSIDE RECORDS SUMMARY | 2025-11-02 13:37 | XMS_ITS | Clinical Summary ---
Author Organization [facility] Address [address] [place] [address] Care Team Providers Care Last Greaser Name Role Phone Unavailable Primary Care Provider Unavailabl e Source Comments [facility],non-owned Affiliates and Associated Physician Practices is amultiple site organization consisting of ambulatory clinics and hospital sitesin [place], [place], [place] and [place]. This disclosure is being madepursuant to the Care Everywhere program and may not contain all information available regarding this patient. Last updated 18.[facility] [employer] Social History Tobacco Use Types Packs/Day Years [...] DEPRESSION SCREENING 11/17/2024 COVID-19 VACCINE ( - 2024-2 6 season) 2025 INFLUENZA VACCINE (#1) 2025 HEPATITIS [...]
--- OUTSIDE RECORDS SUMMARY | 2025-11-02 13:37 | XMS_ITS | Encounter Summary ---
Author Organization [facility] Address [address] [place] [address] Care Team Providers Care Gate Watchman Name Role Phone Zamzam Myrick MD Primary Care Provider [phone] Reason for Visit * Reason Comments Medication Refill Encounter Details Date Type Department Care Team (Late st Contact Info) Description 01/30/2020 Refill [facility]UROLOGY - [facility] [address] [place] [address] Fernando Dudley MD [address] [facility] [address] [place] [address] Social History Tobacco Use Types Packs/Day Years Used Date Smoking Tobacco: Never Smokeless Tobacco: Never Alcohol Use Standard Drinks/Week Comments Not Asked 0 (1 standard drink = 0.6 oz pur e alcohol) Comments Unknown Sex and Gender Information Value Date Recorded Sex Assigned at Female 07/17/2024 4:55 PM CDT Legal Sex Female 8:42 AM BRAKE LINING MAKER Gender Identity Female 07/17/2024 4:55 PM CDT [...] Description 06/30/2026 3:30 PM CDT Office Visit [facility] Neurology [address] [place] [address] Fernando Dudley MD [address] [address] documented as of this encounter Visit Diagnoses Not on filedocumented in this encounter Care Teams Gate Watchman Relationship Specialty Start Date End Date Zamzam Myrick MD PCP - General Family Practice 12/28/15 documented as of this encounter
--- OUTSIDE RECORDS SUMMARY | 2025-11-02 13:37 | XMS_ITS | Clinical Summary ---
Author Organization [facility] Address [address] [address] Care Team Providers Care Stripper And Opaquer Apprentice Name Role Phone Zamzam Myrick MD Primary [...] on file Legal Sex Female 3:51 AM HOGSHEAD INSPECTOR Gender Identity Not on file Sexual Orientation Not on file Last Filed Vital Signs Vital Sign Reading [...] Vaccine (#1) 2025 10/07/2019, 2014 Insurance MEDICARE [facility] MEDICARE [facility] [place] [address] [place] [address] Care Teams Stripper And Opaquer Apprentice Relationship Specialty Start Date End Date Zamzam Myrick MD PCP - General Family Medicine 04/06/20
== END 2025-11-02 11:18 | disposition home or self-care (01) ==
PROVIDERS: PCP Family Medicine; Visit Provider Family Medicine
DX: G20.B1 Parkinson's disease with dyskinesia, without mention of fluctuations (principal)
CPT/HCPCS: 70470; Q9967